=== PATIENT | female | born 1950 | race Caucasian/White ===

== ENCOUNTER 2017-01-05 18:47 | Inpatient (IN) | payer MEDICARE, OTHER ==
[~2017-01-05] VITALS: Ht 170.2 cm; Wt 90.7 kg
[2017-01-05] MEDS ORDERED: ONDANSETRON PF 4 MG/2 ML VIAL. IV ONE ×2 (19:15→20:30)
[2017-01-05 19:26] LABS: BASO # 0.1 x10^3/uL (0.0-0.2); BASO % 0 % (0-3); EOS % 0 % (0-3); HEMOGLOBIN 14.1 g/dL (12.0-15.5); LYMPH # 0.5 x10^3/uL (1.0-4.8); LYMPH % 4 % (24-48); MEAN CORPUSCULAR HEMOGLOBIN 25 pg (25-35); MEAN CORPUSCULAR HGB CONC 33 g/dL (31-37); MEAN CORPUSCULAR VOLUME 76 fL (79-100); MONO % 7 % (0-9); NEUT % 90 % (31-73); PLATELET COUNT 245 x10^3/uL (140-400); RED BLOOD COUNT 5.65 x10^6/uL (3.50-5.40); RED CELL DISTRIBUTION WIDTH 18.3 % (11.5-14.5); WHITE BLOOD COUNT 15.1 x10^3/uL (4.0-11.0)
[2017-01-05 19:36] LABS: CALCIUM 9.8 mg/dL (8.5-10.1); CREATININE 0.8 mg/dL (0.6-1.0); GFR 71.8; POTASSIUM 3.5 mmol/L (3.5-5.1)
[2017-01-05 19:42] LABS: ALBUMIN 3.4 g/dL (3.4-5.0); ALBUMIN/GLOBULIN RATIO 0.7 (1.0-1.7); TOTAL BILIRUBIN 0.5 mg/dL (0.2-1.0); TOTAL PROTEIN 8.3 g/dL (6.4-8.2)
[2017-01-05 19:47] LABS: ANISOCYTOSIS SLIGHT; PLT ESTIMATE ADEQUATE (ADEQUATE)
[2017-01-05] MEDS ORDERED: IV NORMAL SALINE 1000ML BAG 1,000 ML IV ONE ×2 (20:00→23:30)
[2017-01-05] MEDS ORDERED: CONTRAST GIVEN MC PRN (20:15)
[2017-01-05] MEDS ORDERED: IOHEXOL 300 MG/ML 100ML VIAL. IV ONE (20:15)
--- NOTE | 2017-01-05 21:04 | RAD ---
Indication: Abdominal pain with nausea and vomiting TECHNIQUE: CT abdomen and pelvis with 75 mL of Omnipaque 300 with multiplanar reformats. COMPARISON: None FINDINGS: Heart is normal in size. No pericardial or pleural effusion. Clear lung bases. Moderate amount of pneumobilia noted. Note made of biliary stent with its distal tip in the right hepatic duct and proximal tibia in the CBD. Dilated segment 7/6 intrahepatic biliary ducts upstream to the stent. There is a suggestion of ill-defined soft tissue lesion in the segment 7/6 with atrophy of the segments measuring approximately 4.9 x 4.3 cm. Spleen within normal limits. Gallbladder not seen. Pancreas within normal limits. Adrenal glands show no nodularity. No nephrolithiasis or hydronephrosis. Multifocal cortical scarring seen in the left kidney. No enlarged retroperitoneal or pelvic adenopathy. No bowel obstruction. Sigmoid diverticulosis. There is a small bowel and mesentery containing hernia in the right parasagittal abdominal wall with neck measuring approximately 3.7 cm causing proximal small bowel dilation with air-fluid levels. Anastomotic sutures are seen in the right hemiabdomen. There is a 2.3 x 1.6 cm pocket of air in the central mesentery (series 2 image 59) with surrounding bowel loops. No fluid is seen in this cavity. Uterus is anteverted. Bladder within normal limits. No solid adnexal lesions. Scattered atherosclerotic disease of the abdominal aorta. No suspicious bony lesion. Multilevel degenerative changes in the spine. Trace amount of air is seen adjacent to the bowel wall in right hemiabdomen containing in the mesentery. IMPRESSION: 1. Right parasagittal hernia containing loops of small bowel and mesentery causing proximal bowel obstruction. 2. Post surgical changes in the right hemiabdomen with trace amount of contained mesenteric air along the bowel wall. While the scattered areas of air may be postsurgical, bowel perforation not ruled out. Correlate with timing of surgery. 3. Small pocket of air in the central mesentery without significant fluid may represent a contained perforation or patulous loop of bowel. 4. Sigmoid diverticulosis without diverticulitis. 5. Moderate diffuse pneumobilia with biliary duct stent. 6. Dilated intrahepatic ducts in the segment 7 and 6 of the liver with atrophy of the segments. Correlate if patient has history of cholangiocarcinoma or biliary duct stricture for which stent was placed. Electronically signed by: Atul Salazar DO (01/05/2017 9:01 PM) [facility]
[2017-01-05] MEDS ORDERED: PIPERACILLIN/TAZOBACTAM 4.5 GM in IV DEXTROSE 5% 100 ML IV ONE (23:30)
[2017-01-05] MEDS ORDERED: VANCOMYCIN 1GM IVPB FOR OMNI 250 ML IV ONE (23:30)
--- NOTE | 2017-01-05 23:49 | PHYS DOC ---
Past Medical History Past Medical History: Diverticulitis, Other Additional Past Medical Histor: OSTEOPOROSIS Past Surgical History: Cholecystectomy, Other Additional Past Surgical Histo: D&C,BILAT KNEES Alcohol Use: None Drug Use: None Adult General Chief Complaint Chief Complaint: ABDOMINAL PAIN HPI HPI 66-year-old female with a history of history of cholecystectomy complicated by the need for common bile duct reconstruction with a section of small bowel, now presents the emergency department complaining of nausea vomiting and abdominal pain for 2 days. Patient states she's had some intermittent abdominal pain which is been worsening. She has nausea and vomiting which is worsening today. Denies fevers chills sweats or shaking chills. No black or bloody stool. Patient 's surgeon was Dr. Echevarria at and she is not currently under his care. Review of Systems Review of Systems Constitutional: Denies fever or chills [] Eyes: Denies change in visual acuity, redness, or eye pain [] HENT: Denies nasal congestion or sore throat [] Respiratory: Denies cough or shortness of breath [] Cardiovascular: No additional information not addressed in HPI [] GI: Per history of present illness : Denies dysuria or hematuria [] Musculoskeletal: Denies back pain or joint pain [] Integument: Denies rash or skin lesions [] Neurologic: Denies headache, focal weakness or sensory changes [] Endocrine: Denies polyuria or polydipsia [] All other systems were reviewed and found to be within normal limits, except as documented in this note. Current Medications Current Medications Current Medications Medications (Trade) Dose Ordered Sig/Adam Start Time Stop Time Status Last Admin Dose Admin Dexamethasone Sodium Phosphate (Decadron) 20 mg STK-MED ONCE 01/06/17 00:30 01/06/17 00:31 DC Fentanyl Citrate (Fentanyl 2ml Vial) 100 mcg STK-MED ONCE 01/06/17 00:29 01/06/17 00:30 DC Glycopyrrolate (Robinul) 1 mg STK-MED ONCE 01/06/17 00:29 01/06/17 00:31 DC Info (Do NOT chart on this entry -- for MONITORING) 1 each PRN DAILY PRN 01/05/17 20:15 01/07/17 20:14 Iohexol (Omnipaque 300 Mg/ml) 75 ml 1X ONCE 01/05/17 20:15 01/05/17 20:16 DC 01/05/17 20:10 75 ML Lidocaine HCl (Lidocaine Pf 2% Vial) 5 ml STK-MED ONCE 01/06/17 00:30 01/06/17 00:31 DC Midazolam HCl (Versed) 2 mg STK-MED ONCE 01/06/17 00:29 01/06/17 00:30 DC Morphine Sulfate 2 mg PRN Q2HR PRN 01/05/17 23:45 01/06/17 23:44 Neostigmine Methylsulfate (Bloxiverz) 10 mg STK-MED ONCE 01/06/17 00:29 01/06/17 00:30 DC Ondansetron HCl (Zofran) 4 mg STK-MED ONCE 01/06/17 00:30 01/06/17 00:31 DC Piperacillin Sod/ Tazobactam Sod (Zosyn) 4.5 gm 1X ONCE 01/06/17 00:00 01/06/17 00:01 DC 01/06/17 00:17 4.5 GM Piperacillin Sod/ Tazobactam Sod 3.375 gm/Dextrose 50 ml @ 100 mls/hr 1X ONCE 01/06/17 01:30 01/06/17 01:59 UNV Piperacillin Sod/ Tazobactam Sod 4.5 gm/Dextrose 100 ml @ 200 mls/hr 1X ONCE 01/05/17 23:30 01/05/17 23:59 UNV Propofol 0 ml @ As Directed STK-MED ONCE 01/06/17 00:30 01/06/17 00:31 DC Rocuronium [place] (Zemuron) 50 mg STK-MED ONCE 01/06/17 00:30 01/06/17 00:31 DC Sevoflurane (Ultane) 90 ml STK-MED ONCE 01/06/17 00:29 01/06/17 00:30 DC Sodium Chloride 1,000 ml @ 125 mls/hr Q8H 01/05/17 23:31 01/06/17 23:30 Succinylcholine Chloride (Anectine) 200 mg STK-MED ONCE 01/06/17 00:32 01/06/17 00:33 DC Vancomycin HCl (Vanco Per Pharmacy) 1 each PRN DAILY PRN 01/05/17 23:30 Vancomycin HCl 2 gm/Dextrose 500 ml @ 250 mls/hr 1X ONCE 01/06/17 00:30 01/06/17 02:29 01/06/17 00:20 250 MLS/HR Allergies Allergies Allergies Coded Allergies Type Severity Reaction Last Updated Verified No Known Drug Allergies 01/05/17 No Physical Exam Physical Exam Constitutional: Well developed, well nourished, no acute distress, non-toxic appearance. [] HENT: Normocephalic, atraumatic, bilateral external ears normal, oropharynx moist, no oral exudates, nose normal. [] Eyes: PERRLA, EOMI, conjunctiva normal, no discharge. [] Neck: Normal range of motion, no tenderness, supple, no stridor. [] Cardiovascular:Heart rate regular rhythm, no murmur [] Lungs & Thorax: Bilateral breath sounds clear to auscultation [] Abdomen: Bowel sounds normal, soft, mild mid abdominal tenderness without guarding or rebound. Well-healed old right parasagittal scar intact with no skin changes. No masses, no pulsatile masses. [] Skin: Warm, dry, no erythema, no rash. [] Back: No tenderness, no CVA tenderness. [] Extremities: No tenderness, no cyanosis, no clubbing, ROM intact, no edema. [] Neurologic: Alert and oriented X 3, normal motor function, normal sensory function, no focal deficits noted. [] Psychologic: Affect normal, judgement normal, mood normal. [] Current Patient Data Vital Signs Vital Signs Date Time Temp Pulse Resp B/P (MAP) Pulse Ox O2 Delivery O2 Flow Rate FiO2 01/05/17 23:51 80 25 117/60 (79) 94 Room Air 01/05/17 18:47 98.5 98.5 Lab Values Laboratory Tests Test 01/05/17 19:15 01/05/17 23:34 01/06/17 00:08 White Blood Count 15.1 x10^3/uL (4.0-11.0) H Red Blood Count 5.65 x10^6/uL (3.50-5.40) H Hemoglobin 14.1 g/dL (12.0-15.5) Hematocrit 43.0 % (36.0-47.0) Mean Corpuscular Volume 76 fL (79-100) L Mean Corpuscular Hemoglobin 25 pg (25-35) Mean Corpuscular Hemoglobin Concent 33 g/dL (31-37) Red Cell Distribution Width 18.3 % (11.5-14.5) H Platelet Count 245 x10^3/uL (140-400) Neutrophils (%) (Auto) 90 % (31-73) H Lymphocytes (%) (Auto) 4 % (24-48) L Monocytes (%) (Auto) 7 % (0-9) Eosinophils (%) (Auto) 0 % (0-3) Basophils (%) (Auto) 0 % (0-3) Neutrophils # (Auto) 13.5 x10^3uL (1.8-7.7) H Lymphocytes # (Auto) 0.5 x10^3/uL (1.0-4.8) L Monocytes # (Auto) 1.0 x10^3/uL (0.0-1.1) Eosinophils # (Auto) 0.0 x10^3/uL (0.0-0.7) Basophils # (Auto) 0.1 x10^3/uL (0.0-0.2) Segmented Neutrophils % 89 % (35-66) H Band Neutrophils % 4 % (0-9) Lymphocytes % 3 % (24-48) L Monocytes % 4 % (0-10) Platelet Estimate Adequate (ADEQUATE) Anisocytosis Slight Sodium Level 136 mmol/L (136-145) Potassium Level 3.5 mmol/L (3.5-5.1) Chloride Level 98 mmol/L (98-107) Carbon Dioxide Level 28 mmol/L (21-32) Anion Gap 10 (6-14) Blood Urea Nitrogen 14 mg/dL (7-20) Creatinine 0.8 mg/dL (0.6-1.0) Estimated GFR (Cockcroft-Gault) 71.8 BUN/Creatinine Ratio 18 (6-20) Glucose Level 118 mg/dL (70-99) H Calcium Level 9.8 mg/dL (8.5-10.1) Total Bilirubin 0.5 mg/dL (0.2-1.0) Aspartate Amino Transferase (AST) 37 U/L (15-37) Alanine Aminotransferase (ALT) 46 U/L (14-59) Alkaline Phosphatase 72 U/L (46-116) Total Protein 8.3 g/dL (6.4-8.2) H Albumin 3.4 g/dL (3.4-5.0) Albumin/Globulin Ratio 0.7 (1.0-1.7) L Lipase 179 U/L (73-393) Urine Collection Type Unknown Urine Color Yellow Urine Clarity Hazy Urine pH 6.5 Urine Specific [place] <=1.005 Urine Protein 30 mg/dL (NEG-TRACE) Urine Glucose (UA) Negative mg/dL (NEG) Urine Ketones (Stick) 80 mg/dL (NEG) Urine Blood Moderate (NEG) Urine Nitrite Positive (NEG) Urine Bilirubin Negative (NEG) Urine Urobilinogen Dipstick 0.2 mg/dL (0.2 mg/dL) Urine Leukocyte Esterase Trace (NEG) Urine RBC 1-2 /HPF (0-2) Urine WBC 1-4 /HPF (0-4) Urine Squamous Epithelial Cells Few /LPF Urine Bacteria Many /HPF (0-FEW) Lactic Acid Level 0.8 mmol/L (0.4-2.0) Laboratory Tests 01/05/17 19:15 Laboratory Tests 01/05/17 19:15 EKG EKG EKG with normal sinus rhythm at [address] and T-wave findings no STEMI interpreted by me[] Radiology/Procedures Radiology/Procedures [] Course & Med Decision Making Course & Med Decision Making Pertinent Labs and Imaging studies reviewed. (See chart for details) Patient with history of common bile duct reconstruction with a right parasagittal vertical abdominal scar now with abdominal pain and CT findings consistent with incarcerated hernia. White blood cell count 15.1. Case discussed with Dr. Huston on-call for patient's primary care doctor. He is aware of history and findings accepts patient for inpatient admission his service with consultation to surgery. Case discussed with Dr. Arriaga surgery asset protection professional. He is aware the history and findings and agrees with stat consultation. Patient will be kept nothing by mouth with IV fluids administered. Dr. Arriaga will see patient and provide surgical treatment as needed. Patient clinically and hemodynamically stable on reevaluation. Given elevated white blood cell count blood cultures will be drawn and antibiotic coverage initiated. [] Dragon Disclaimer Dragon Disclaimer This electronic medical record was generated, in whole or in part, using a voice recognition dictation system. Departure Departure Impression: Primary Impression: Abdominal wall hernia Additional Impressions: Small bowel obstruction Leukocytosis Abdominal pain Disposition: 09 ADMITTED INPATIENT Admitting Physician: Aaron Huston Referrals: ED BEAR MD (PCP) Problem Qualifiers ED LATHAM MD Jan 05, 2017 23:49
[2017-01-05 23:52] LABS: BACTERIA,URINE MANY /HPF (0-FEW); BILIRUBIN,URINE NEGATIVE (NEG); GLUCOSE,URINE NEGATIVE (NEG); NITRITE,URINE POSITIVE (NEG); PH,URINE 6.5; PROTEIN,URINE 30 mg/dL (NEG-TRACE); SQUAMOUS EPITHELIAL CELL,UR FEW /LPF; UROBILINOGEN,URINE 0.2 mg/dL (0.2 mg/dL)
[2017-01-06] MEDS ORDERED: PIPERACILLIN/TAZO IV Push 4.5 GM VIAL. IVP ONE
[2017-01-06] MEDS ORDERED: SEVOFLURANE > 120 MINUTES. IH ONE (00:29)
[2017-01-06] MEDS ORDERED: MIDAZOLAM HCL/PF 2 MG/2 ML VIAL. ONE (00:29)
[2017-01-06] MEDS ORDERED: NEOSTIGMINE 10 MG/10 ML VIAL. ONE (00:29)
[2017-01-06] MEDS ORDERED: fentaNYL PF VIAL 100 MCG/2 ML VIAL ONE (00:29)
[2017-01-06] MEDS ORDERED: GLYCOPYRROLATE 1 MG/5 ML VIAL. ONE (00:29)
[2017-01-06] MEDS ORDERED: VANCOMYCIN 2 GM in IV DEXTROSE 5% 500 ML IV ONE (00:30)
[2017-01-06] MEDS ORDERED: DEXAMETHASONE SOD PHOS 20 MG/5 ML VIAL. ONE (00:30)
[2017-01-06] MEDS ORDERED: PROPOFOL 0 ML IV ONE (00:30)
[2017-01-06] MEDS ORDERED: LIDOCAINE 2% PF Vial for OR 5 ML VIAL. ONE (00:30)
[2017-01-06] MEDS ORDERED: ONDANSETRON PF 4 MG/2 ML VIAL. ONE (00:30)
[2017-01-06] MEDS ORDERED: ROCURONIUM 50 MG/5 ML VIAL. ONE (00:30)
[2017-01-06] MEDS ORDERED: SUCCINYLCHOLINE 200 MG/10 ML VIAL. ONE (00:32)
--- NOTE | 2017-01-06 01:15 | PDOC2 ---
CONSULT Date of Consult Date of Consult DATE: 01/06/17 TIME: 01:08 History of Present Illness Reason for Visit: The patient is a 66 year old female who reported to the ER with a 4 day history of abdominal pain with vomiting. The pain is located in the mid abdomen and is somewhat improved currently. She did have a stool earlier today and is not sure if she's passing gas. She has a complex prior surgical history including an extensive bile duct reconstruction at following a cholecystectomy. Past Surgical History Past Surgical History open carmen, yoon en y bile duct reconstruction Social History No Current Problem List Problem List Problems Medical Problems: (1) Abdominal pain Status: Acute (2) Abdominal wall hernia Status: Acute (3) Leukocytosis Status: Acute (4) Small bowel obstruction Status: Acute Current Medications Current Medications Current Medications Ondansetron HCl (Zofran) 4 mg 1X ONCE IV Last administered on 01/05/17 19:29 ; Start 01/05/17 at 19:15; Stop 01/05/17 at 19:17; Status DC Sodium Chloride 1,000 ml @ 1,000 mls/hr 1X ONCE IV Last administered on 01/05 20:22; Start 01/05/17 at 20:00; Stop 01/05/17 at 20:59; Status DC Iohexol (Omnipaque 300 Mg/ml) 75 ml 1X ONCE IV Last administered on 20:10; Start 01/05/17 at 20:15; Stop 01/05/17 at 20:16; Status DC Info (Do NOT chart on this entry -- for MONITORING) 1 each PRN DAILY PRN MC SEE COMMENTS; Start 01/05/17 at 20:15; Stop 01/07/17 at 20:14 Ondansetron HCl (Zofran) 4 mg 1X ONCE IV Last administered on 01/05/17 20:22 ; Start 01/05/17 at 20:30; Stop 01/05/17 at 20:31; Status DC Sodium Chloride 1,000 ml @ 125 mls/hr 1X ONCE IV Last administered on 23:30; Start 01/05/17 at 23:30; Stop 01/06/17 at 07:29 Piperacillin Sod/ Tazobactam Sod 4.5 gm/Dextrose 100 ml @ 200 mls/hr 1X ONCE IV ; Start 01/05/17 at 23:30; Stop 01/05/17 at 23:59; Status UNV Vancomycin HCl 250 ml @ 250 mls/hr 1X ONCE IV ; Start 01/05/17 at 23:30; Stop 01/06/17 at 00:29; Status UNV Piperacillin Sod/ Tazobactam Sod (Zosyn) 4.5 gm 1X ONCE IVP Last administered on 01/06/17t 00:17; Start 01/06/17 at 00:00; Stop 01/06/17 at 00:01; Status DC Vancomycin HCl (Vanco Per Pharmacy) 1 each PRN DAILY PRN MC SEE COMMENTS; Start 01/05/17 at 23:30 Vancomycin HCl 2 gm/Dextrose 500 ml @ 250 mls/hr 1X ONCE IV Last administered on 01/06/17t 00:20; Start 01/06/17 at 00:30; Stop 01/06/17 at 02 :29 Ondansetron HCl (Zofran) 4 mg PRN Q8HRS PRN IV NAUSEA/VOMITING; Start at 23:45; Stop 01/06/17 at 23:44 Morphine Sulfate 2 mg PRN Q2HR PRN IV SEVERE PAIN; Start 01/05/17 at 23:45; Stop 01/06/17 at 23:44 Sodium Chloride 1,000 ml @ 125 mls/hr Q8H IV ; Start 01/05/17 at 23:31; Stop 01/06/17 at 23:30 Sevoflurane (Ultane) 90 ml STK-MED ONCE IH ; Start 01/06/17 at 00:29; Stop at 00:30; Status DC Neostigmine Methylsulfate (Bloxiverz) 10 mg STK-MED ONCE .ROUTE ; Start at 00:29; Stop 01/06/17 at 00:30; Status DC Midazolam HCl (Versed) 2 mg STK-MED ONCE .ROUTE ; Start 01/06/17 at 00:29; Stop 01/06/17 at 00:30; Status DC Fentanyl Citrate (Fentanyl 2ml Vial) 100 mcg STK-MED ONCE .ROUTE ; Start at 00:29; Stop 01/06/17 at 00:30; Status DC Glycopyrrolate (Robinul) 1 mg STK-MED ONCE .ROUTE ; Start 01/06/17 at 00:29; Stop 01/06/17 at 00:31; Status DC Rocuronium [place] (Zemuron) 50 mg STK-MED ONCE .ROUTE ; Start 01/06/17 at 00: 30; Stop 01/06/17 at 00:31; Status DC Propofol 20 ml @ As Directed STK-MED ONCE IV ; Start 01/06/17 at 00:30; Stop 01/06/17 at 00:31; Status DC Lidocaine HCl (Lidocaine Pf 2% Vial) 5 ml STK-MED ONCE .ROUTE ; Start 01/06/17 at 00:30; Stop 01/06/17 at 00:31; Status DC Dexamethasone Sodium Phosphate (Decadron) 20 mg STK-MED ONCE .ROUTE ; Start at 00:30; Stop 01/06/17 at 00:31; Status DC Ondansetron HCl (Zofran) 4 mg STK-MED ONCE .ROUTE ; Start 01/06/17 at 00:30; Stop 01/06/17 at 00:31; Status DC Succinylcholine Chloride (Anectine) 200 mg STK-MED ONCE .ROUTE ; Start at 00:32; Stop 01/06/17 at 00:33; Status DC Allergies Allergies: Coded Allergies: No Known Drug Allergies (Unverified , 01/05/17) ROS General: No: Chills, Night Sweats, Fatigue, Malaise, Appetite, Other PSYCHOLOGICAL ROS: No: Anxiety, Behavioral Disorder, Concentration difficultie , Decreased libido, Depression, Disorientation, Hallucinations, Hostility, Irritablity, Memory difficulties, Mood Swings, Obsessive thoughts, Physical abuse, Sexual abuse, Sleep disturbances, Suicidal ideation, Other Eyes: No Blurry vision, No Decreased vision, No Double vision, No Dry eyes, No Excessive tearing, No Eye Pain, No Itchy Eyes, No Loss of vision, No Photophobia , No Scotomata, No Uses contacts, No Uses glasses, No Other Hematological and Lymphatic: No: Bleeding Problems, Blood Clots, Blood Transfusions, Brusing, Night Sweats, Pallor, Swollen Lymph Nodes, Other ENDOCRINE: No: Breast Changes, Galactorrhea, Hair Pattern Changes, Hot Flashes , Malaise/lethargy, Mood Swings, Palpitations, Polydipsia/polyuria, Skin Changes , Temperature Intolerance, Unexpected Weight Changes, Other Cardiovascular: No Chest Pain, No Palpitations, No Orthopnea, No Paroxysmal Noc. Dyspnea, No Edema, No Lt Headedness, No Other Gastrointestinal: Yes Vomiting, Yes Abdominal Pain Genitourinary: No Dysuria, No Frequency, No Incontinence, No Hematuria, No Retention, No Discharge, No Urgency, No Pain, No Flank Pain, No Other, No , No , No , No , No , No , No Musculoskeletal: No Gait Disturbance, No Joint Pain, No Joint Stiffness, No Joint Swelling, No Muscle Pain, No Muscular Weakness, No Pain In:, No Swelling In:, No Other Neurological: No Behavorial Changes, No Bowel/Bladder ControlChng, No Confusion , No Dizziness, No Gait Disturbance, No Headaches, No Impaired Coord/balance, No Memory Loss, No Numbness/Tingling, No Seizures, No Speech Problems, No Tremors, No Visual Changes, No Weakness, No Other Skin: No Dry Skin, No Eczema, No Hair Changes, No Lumps, No Mole Changes, No Mottling, No Nail Changes, No Pruritus, No Rash, No Skin Lesion Changes, No Other, No Acne Physical Exam General: Alert, Oriented X3, Cooperative HEENT: Atraumatic Lungs: Clear to auscultation Heart: Regular rate Abdomen: Soft (mildly tender R abdomen, R paramedian scar present, hernia currently appears reduced on clinical exam, no palpable incarceration) Extremities: No clubbing, No cyanosis Skin: No rashes Neuro: Normal speech Psych/Mental Status: Mental status NL Vitals VITALS Vital Signs Date Time Temp Pulse Resp B/P (MAP) Pulse Ox O2 Delivery O2 Flow Rate FiO2 01/05/17 23:51 80 25 117/60 (79) 94 Room Air 01/05/17 18:47 98.5 98.5 Labs Labs Laboratory Tests Test 01/05/17 19:15 01/05/17 23:34 01/06/17 00:08 White Blood Count 15.1 x10^3/uL (4.0-11.0) Red Blood Count 5.65 x10^6/uL (3.50-5.40) Hemoglobin 14.1 g/dL (12.0-15.5) Hematocrit 43.0 % (36.0-47.0) Mean Corpuscular Volume 76 fL (79-100) Mean Corpuscular Hemoglobin 25 pg (25-35) Mean Corpuscular Hemoglobin Concent 33 g/dL (31-37) Red Cell Distribution Width 18.3 % (11.5-14.5) Platelet Count 245 x10^3/uL (140-400) Neutrophils (%) (Auto) 90 % (31-73) Lymphocytes (%) (Auto) 4 % (24-48) Monocytes (%) (Auto) 7 % (0-9) Eosinophils (%) (Auto) 0 % (0-3) Basophils (%) (Auto) 0 % (0-3) Neutrophils # (Auto) 13.5 x10^3uL (1.8-7.7) Lymphocytes # (Auto) 0.5 x10^3/uL (1.0-4.8) Monocytes # (Auto) 1.0 x10^3/uL (0.0-1.1) Eosinophils # (Auto) 0.0 x10^3/uL (0.0-0.7) Basophils # (Auto) 0.1 x10^3/uL (0.0-0.2) Segmented Neutrophils % 89 % (35-66) Band Neutrophils % 4 % (0-9) Lymphocytes % 3 % (24-48) Monocytes % 4 % (0-10) Platelet Estimate Adequate (ADEQUATE) Anisocytosis Slight Sodium Level 136 mmol/L (136-145) Potassium Level 3.5 mmol/L (3.5-5.1) Chloride Level 98 mmol/L (98-107) Carbon Dioxide Level 28 mmol/L (21-32) Anion Gap 10 (6-14) Blood Urea Nitrogen 14 mg/dL (7-20) Creatinine 0.8 mg/dL (0.6-1.0) Estimated GFR (Cockcroft-Gault) 71.8 BUN/Creatinine Ratio 18 (6-20) Glucose Level 118 mg/dL (70-99) Calcium Level 9.8 mg/dL (8.5-10.1) Total Bilirubin 0.5 mg/dL (0.2-1.0) Aspartate Amino Transf (AST/SGOT) 37 U/L (15-37) Alanine Aminotransferase (ALT/SGPT) 46 U/L (14-59) Alkaline Phosphatase 72 U/L (46-116) Total Protein 8.3 g/dL (6.4-8.2) Albumin 3.4 g/dL (3.4-5.0) Albumin/Globulin Ratio 0.7 (1.0-1.7) Lipase 179 U/L (73-393) Urine Collection Type Unknown Urine Color Yellow Urine Clarity Hazy Urine pH 6.5 Urine Specific [place] <=1.005 Urine Protein 30 mg/dL (NEG-TRACE) Urine Glucose (UA) Negative mg/dL (NEG) Urine Ketones (Stick) 80 mg/dL (NEG) Urine Blood Moderate (NEG) Urine Nitrite Positive (NEG) Urine Bilirubin Negative (NEG) Urine Urobilinogen Dipstick 0.2 mg/dL (0.2 mg/dL) Urine Leukocyte Esterase Trace (NEG) Urine RBC 1-2 /HPF (0-2) Urine WBC 1-4 /HPF (0-4) Urine Squamous Epithelial Cells Few /LPF Urine Bacteria Many /HPF (0-FEW) Lactic Acid Level 0.8 mmol/L (0.4-2.0) Laboratory Tests Test 01/05/17 19:15 01/05/17 23:34 01/06/17 00:08 White Blood Count 15.1 x10^3/uL (4.0-11.0) Red Blood Count 5.65 x10^6/uL (3.50-5.40) Hemoglobin 14.1 g/dL (12.0-15.5) Hematocrit 43.0 % (36.0-47.0) Mean Corpuscular Volume 76 fL (79-100) Mean Corpuscular Hemoglobin 25 pg (25-35) Mean Corpuscular Hemoglobin Concent 33 g/dL (31-37) Red Cell Distribution Width 18.3 % (11.5-14.5) Platelet Count 245 x10^3/uL (140-400) Neutrophils (%) (Auto) 90 % (31-73) Lymphocytes (%) (Auto) 4 % (24-48) Monocytes (%) (Auto) 7 % (0-9) Eosinophils (%) (Auto) 0 % (0-3) Basophils (%) (Auto) 0 % (0-3) Neutrophils # (Auto) 13.5 x10^3uL (1.8-7.7) Lymphocytes # (Auto) 0.5 x10^3/uL (1.0-4.8) Monocytes # (Auto) 1.0 x10^3/uL (0.0-1.1) Eosinophils # (Auto) 0.0 x10^3/uL (0.0-0.7) Basophils # (Auto) 0.1 x10^3/uL (0.0-0.2) Segmented Neutrophils % 89 % (35-66) Band Neutrophils % 4 % (0-9) Lymphocytes % 3 % (24-48) Monocytes % 4 % (0-10) Platelet Estimate Adequate (ADEQUATE) Anisocytosis Slight Sodium Level 136 mmol/L (136-145) Potassium Level 3.5 mmol/L (3.5-5.1) Chloride Level 98 mmol/L (98-107) Carbon Dioxide Level 28 mmol/L (21-32) Anion Gap 10 (6-14) Blood Urea Nitrogen 14 mg/dL (7-20) Creatinine 0.8 mg/dL (0.6-1.0) Estimated GFR (Cockcroft-Gault) 71.8 BUN/Creatinine Ratio 18 (6-20) Glucose Level 118 mg/dL (70-99) Calcium Level 9.8 mg/dL (8.5-10.1) Total Bilirubin 0.5 mg/dL (0.2-1.0) Aspartate Amino Transf (AST/SGOT) 37 U/L (15-37) Alanine Aminotransferase (ALT/SGPT) 46 U/L (14-59) Alkaline Phosphatase 72 U/L (46-116) Total Protein 8.3 g/dL (6.4-8.2) Albumin 3.4 g/dL (3.4-5.0) Albumin/Globulin Ratio 0.7 (1.0-1.7) Lipase 179 U/L (73-393) Urine Collection Type Unknown Urine Color Yellow Urine Clarity Hazy Urine pH 6.5 Urine Specific [place] <=1.005 Urine Protein 30 mg/dL (NEG-TRACE) Urine Glucose (UA) Negative mg/dL (NEG) Urine Ketones (Stick) 80 mg/dL (NEG) Urine Blood Moderate (NEG) Urine Nitrite Positive (NEG) Urine Bilirubin Negative (NEG) Urine Urobilinogen Dipstick 0.2 mg/dL (0.2 mg/dL) Urine Leukocyte Esterase Trace (NEG) Urine RBC 1-2 /HPF (0-2) Urine WBC 1-4 /HPF (0-4) Urine Squamous Epithelial Cells Few /LPF Urine Bacteria Many /HPF (0-FEW) Lactic Acid Level 0.8 mmol/L (0.4-2.0) Images Images CT abdomen: IMPRESSION: 1. Right parasagittal hernia containing loops of small bowel and mesentery causing proximal bowel obstruction. 2. Post surgical changes in the right hemiabdomen with trace amount of contained mesenteric air along the bowel wall. While the scattered areas of air may be postsurgical, bowel perforation not ruled out. Correlate with timing of surgery. 3. Small pocket of air in the central mesentery without significant fluid may represent a contained perforation or patulous loop of bowel. 4. Sigmoid diverticulosis without diverticulitis. 5. Moderate diffuse pneumobilia with biliary duct stent. 6. Dilated intrahepatic ducts in the segment 7 and 6 of the liver with atrophy of the segments. Correlate if patient has history of cholangiocarcinoma or biliary duct stricture for which stent was placed. Assessment/Plan Assessment/Plan 66 year old female with abdominal pain, vomiting; her CT findings were noted which include a R paramedian ventral hernia; she has marked postoperative changes as well including some likely chronically dilated bowel and pneumobilia ; her exam shows a soft abdomen without guarding or peritoneal signs, scar tissue present along R paramedian scar, but no palpable hernia incarceration at this time; at this time I would recommend admission, hydration, pain control, serial exams/labs; if further abdominal surgery appears necessary, would consider transfer to due to complexity of her prior surgical history and altered anatomy. I discussed this with the patient; she currently feels somewhat improved and is agreeable for the plan. ELIZA ZAVALA MD Jan 06, 2017 01:15
[2017-01-06] MEDS ORDERED: PIPERACILLIN/TAZOBACTAM 3.375 GM in IV DEXTROSE 5% 50 ML IV ONE (01:30)
[2017-01-06] MEDS: VANCOMYCIN PER PHARMACY MC PRN (01:53)
[2017-01-06] MEDS: MORPHINE SULFATE 4 MG/ML DISP.SYRIN. IV PRN ×2 (02:05→22:12)
[2017-01-06] MEDS: ONDANSETRON PF 4 MG/2 ML VIAL. IV PRN ×2 (02:22→22:12)
[2017-01-06 04:00] VITALS: BP 130/69
[2017-01-06] MEDS ORDERED: NAPR-677 PO (05:05)
[2017-01-06] MEDS ORDERED: calcium (05:05)
[2017-01-06] MEDS ORDERED: vitamin (05:05)
[2017-01-06] MEDS ORDERED: [UNRECOGNIZED DRUG - REMARK] (05:05)
[2017-01-06] MEDS ORDERED: LUTE1CAP5 PO (05:05)
[2017-01-06 07:00] VITALS: BP 107/65
--- NOTE | 2017-01-06 07:21 | EKG ---
[facility] [address] [place] [address] Test Date: 2017-01-05 Test Time: 19:36:08 Pat Name: AMITA ARMAS Department: Room: 552 1 Gender: F Distribution Operation Supervisor: : 1950 Requested By: Maryjo RODRÍGUEZ Order Number: [id number] Reading MD: Joel Dietrich MD Measurements Intervals [place] Rate: 80 P: 31 OR: 150 QRS: 22 QRSD: 86 T: 17 QT: 378 QTc: 440 Interpretive Statements SINUS RHYTHM Electronically Signed On 01-06-2017 15:27:37 STEAM FINISHER by Joel Dietrich MD
[2017-01-06] MEDS: IV NORMAL SALINE 1000ML BAG 1,000 ML IV SCH ×3 (07:31→11:44)
--- NOTE | 2017-01-06 08:20 | PDOC ---
JERO REZA COORDINATE MEASURING MACHINE TECHNICIAN 01/06/17 0820: SURGICAL PROGRESS NOTE Subjective still with some pain RUQ, scar area, however improved from admission did have loose stool and flatus no n/v Vital Signs Vital Signs Date Time Temp Pulse Resp B/P (MAP) Pulse Ox O2 Delivery O2 Flow Rate FiO2 01/06/17 07:00 97.9 78 18 107/65 (79) 94 Room Air 97.9 I&O Intake and Output 01/06/17 07:00 Intake Total 1000 ml Balance 1000 ml Intake Oral 0 ml IV Total 1000 ml General: Alert, Oriented X3, Cooperative, No acute distress Abdomen: Soft, Other (ND, tenderness over right abdominal scar, however no palpible hernia) Labs Laboratory Tests Test 01/05/17 19:15 01/05/17 23:34 01/06/17 00:08 White Blood Count 15.1 x10^3/uL (4.0-11.0) Red Blood Count 5.65 x10^6/uL (3.50-5.40) Hemoglobin 14.1 g/dL (12.0-15.5) Hematocrit 43.0 % (36.0-47.0) Mean Corpuscular Volume 76 fL (79-100) Mean Corpuscular Hemoglobin 25 pg (25-35) Mean Corpuscular Hemoglobin Concent 33 g/dL (31-37) Red Cell Distribution Width 18.3 % (11.5-14.5) Platelet Count 245 x10^3/uL (140-400) Neutrophils (%) (Auto) 90 % (31-73) Lymphocytes (%) (Auto) 4 % (24-48) Monocytes (%) (Auto) 7 % (0-9) Eosinophils (%) (Auto) 0 % (0-3) Basophils (%) (Auto) 0 % (0-3) Neutrophils # (Auto) 13.5 x10^3uL (1.8-7.7) Lymphocytes # (Auto) 0.5 x10^3/uL (1.0-4.8) Monocytes # (Auto) 1.0 x10^3/uL (0.0-1.1) Eosinophils # (Auto) 0.0 x10^3/uL (0.0-0.7) Basophils # (Auto) 0.1 x10^3/uL (0.0-0.2) Segmented Neutrophils % 89 % (35-66) Band Neutrophils % 4 % (0-9) Lymphocytes % 3 % (24-48) Monocytes % 4 % (0-10) Platelet Estimate Adequate (ADEQUATE) Anisocytosis Slight Sodium Level 136 mmol/L (136-145) Potassium Level 3.5 mmol/L (3.5-5.1) Chloride Level 98 mmol/L (98-107) Carbon Dioxide Level 28 mmol/L (21-32) Anion Gap 10 (6-14) Blood Urea Nitrogen 14 mg/dL (7-20) Creatinine 0.8 mg/dL (0.6-1.0) Estimated GFR (Cockcroft-Gault) 71.8 BUN/Creatinine Ratio 18 (6-20) Glucose Level 118 mg/dL (70-99) Calcium Level 9.8 mg/dL (8.5-10.1) Total Bilirubin 0.5 mg/dL (0.2-1.0) Aspartate Amino Transf (AST/SGOT) 37 U/L (15-37) Alanine Aminotransferase (ALT/SGPT) 46 U/L (14-59) Alkaline Phosphatase 72 U/L (46-116) Total Protein 8.3 g/dL (6.4-8.2) Albumin 3.4 g/dL (3.4-5.0) Albumin/Globulin Ratio 0.7 (1.0-1.7) Lipase 179 U/L (73-393) Urine Collection Type Unknown Urine Color Yellow Urine Clarity Hazy Urine pH 6.5 Urine Specific [place] <=1.005 Urine Protein 30 mg/dL (NEG-TRACE) Urine Glucose (UA) Negative mg/dL (NEG) Urine Ketones (Stick) 80 mg/dL (NEG) Urine Blood Moderate (NEG) Urine Nitrite Positive (NEG) Urine Bilirubin Negative (NEG) Urine Urobilinogen Dipstick 0.2 mg/dL (0.2 mg/dL) Urine Leukocyte Esterase Trace (NEG) Urine RBC 1-2 /HPF (0-2) Urine WBC 1-4 /HPF (0-4) Urine Squamous Epithelial Cells Few /LPF Urine Bacteria Many /HPF (0-FEW) Lactic Acid Level 0.8 mmol/L (0.4-2.0) Laboratory Tests Test 01/05/17 19:15 01/05/17 23:34 01/06/17 00:08 White Blood Count 15.1 x10^3/uL (4.0-11.0) Red Blood Count 5.65 x10^6/uL (3.50-5.40) Hemoglobin 14.1 g/dL (12.0-15.5) Hematocrit 43.0 % (36.0-47.0) Mean Corpuscular Volume 76 fL (79-100) Mean Corpuscular Hemoglobin 25 pg (25-35) Mean Corpuscular Hemoglobin Concent 33 g/dL (31-37) Red Cell Distribution Width 18.3 % (11.5-14.5) Platelet Count 245 x10^3/uL (140-400) Neutrophils (%) (Auto) 90 % (31-73) Lymphocytes (%) (Auto) 4 % (24-48) Monocytes (%) (Auto) 7 % (0-9) Eosinophils (%) (Auto) 0 % (0-3) Basophils (%) (Auto) 0 % (0-3) Neutrophils # (Auto) 13.5 x10^3uL (1.8-7.7) Lymphocytes # (Auto) 0.5 x10^3/uL (1.0-4.8) Monocytes # (Auto) 1.0 x10^3/uL (0.0-1.1) Eosinophils # (Auto) 0.0 x10^3/uL (0.0-0.7) Basophils # (Auto) 0.1 x10^3/uL (0.0-0.2) Segmented Neutrophils % 89 % (35-66) Band Neutrophils % 4 % (0-9) Lymphocytes % 3 % (24-48) Monocytes % 4 % (0-10) Platelet Estimate Adequate (ADEQUATE) Anisocytosis Slight Sodium Level 136 mmol/L (136-145) Potassium Level 3.5 mmol/L (3.5-5.1) Chloride Level 98 mmol/L (98-107) Carbon Dioxide Level 28 mmol/L (21-32) Anion Gap 10 (6-14) Blood Urea Nitrogen 14 mg/dL (7-20) Creatinine 0.8 mg/dL (0.6-1.0) Estimated GFR (Cockcroft-Gault) 71.8 BUN/Creatinine Ratio 18 (6-20) Glucose Level 118 mg/dL (70-99) Calcium Level 9.8 mg/dL (8.5-10.1) Total Bilirubin 0.5 mg/dL (0.2-1.0) Aspartate Amino Transf (AST/SGOT) 37 U/L (15-37) Alanine Aminotransferase (ALT/SGPT) 46 U/L (14-59) Alkaline Phosphatase 72 U/L (46-116) Total Protein 8.3 g/dL (6.4-8.2) Albumin 3.4 g/dL (3.4-5.0) Albumin/Globulin Ratio 0.7 (1.0-1.7) Lipase 179 U/L (73-393) Urine Collection Type Unknown Urine Color Yellow Urine Clarity Hazy Urine pH 6.5 Urine Specific [place] <=1.005 Urine Protein 30 mg/dL (NEG-TRACE) Urine Glucose (UA) Negative mg/dL (NEG) Urine Ketones (Stick) 80 mg/dL (NEG) Urine Blood Moderate (NEG) Urine Nitrite Positive (NEG) Urine Bilirubin Negative (NEG) Urine Urobilinogen Dipstick 0.2 mg/dL (0.2 mg/dL) Urine Leukocyte Esterase Trace (NEG) Urine RBC 1-2 /HPF (0-2) Urine WBC 1-4 /HPF (0-4) Urine Squamous Epithelial Cells Few /LPF Urine Bacteria Many /HPF (0-FEW) Lactic Acid Level 0.8 mmol/L (0.4-2.0) Problem List Problems Medical Problems: (1) Abdominal pain Status: Acute (2) Abdominal wall hernia Status: Acute (3) Leukocytosis Status: Acute (4) Small bowel obstruction Status: Acute Assessment/Plan abdominal pain, vomiting; her CT findings were noted which include a R paramedian ventral hernia; she has marked postoperative changes as well including some likely chronically dilated bowel and pneumobilia benign exam--except some mild pain, no incarcerated hernia on exam labs are pending this AM d/w Dr Arriaga, rec further evaluation at due to complexity of surgical history --will contact PCP Problems: ELIZA ARRIAGA MD 01/06/17 1155: SURGICAL PROGRESS NOTE Assessment/Plan Reviewed, agree with above; believe [facility] evaluation would be beneficial given prior surgical history Problems: JERO REZA APRN Jan 06, 2017 08:20 ELIZA ARRIAGA MD Jan 06, 2017 11:55
--- NOTE | 2017-01-06 09:25 | PDOC ---
Provider Note Provider Note H&P dictated, admitted with SBO but feels better this am after passing stool while urinating, has a complicated GI surgical history from 2008 and may need transfer to but stable so far, will check [facility]. Discussed with surgery VEHICLE OPERATOR Maryjo Diop MD Jan 06, 2017 09:25
[2017-01-06 10:14] LABS: BASO # 0.1 x10^3/uL (0.0-0.2); BASO % 1 % (0-3); EOS % 1 % (0-3); HEMATOCRIT 38.7 % (36.0-47.0); HEMOGLOBIN 12.6 g/dL (12.0-15.5); LYMPH # 0.8 x10^3/uL (1.0-4.8); LYMPH % 10 % (24-48); MEAN CORPUSCULAR HEMOGLOBIN 25 pg (25-35); MEAN CORPUSCULAR HGB CONC 33 g/dL (31-37); MEAN CORPUSCULAR VOLUME 77 fL (79-100); MONO % 9 % (0-9); NEUT % 80 % (31-73); PLATELET COUNT 195 x10^3/uL (140-400); RED BLOOD COUNT 5.03 x10^6/uL (3.50-5.40); RED CELL DISTRIBUTION WIDTH 18.4 % (11.5-14.5); WHITE BLOOD COUNT 8.2 x10^3/uL (4.0-11.0)
[2017-01-06] MEDS: cefTRIAXone IV Push 1 GM VIAL. IVP SCH (10:30)
--- NOTE | 2017-01-06 10:59 | HP ---
ADMIT DATE: 01/05/2017 ADMISSION DIAGNOSIS: Small-bowel obstruction. HISTORY OF PRESENT ILLNESS: This is a 66-year-old white female who initially had cholecystectomy in 2008. It turned into a complicated procedure, required some bile duct reconstruction with bowel. She has done well since then, but 4 days previously, she developed abdominal pain and vomiting. The pain was mid abdominal. She was seen in the Emergency Room, was afebrile with a normal heart rate, normal blood pressure, but had a white count of 15.[address] imaging showing a right parasagittal hernia containing loops of small bowel mesentery causing a proximal bowel obstruction. She is improved though overnight. She is up and about and urinating. Not having any nausea or vomiting and not having any fever. PAST SURGICAL HISTORY: Significant for open cholecystectomy and Virgen-en-Y bile duct reconstruction. She has osteoarthritis. She has a history of tobacco use. FAMILY HISTORY: Hypertension, diabetes and Parkinson's. SOCIAL HISTORY: Former smoker, no alcohol. ALLERGIES: She has no known drug allergies. MEDICATIONS: No chronic home meds. REVIEW OF SYSTEMS: CONSTITUTIONAL: No fever or chills. CARDIAC: No cardiac symptoms. PULMONARY: No pulmonary symptoms. GASTROINTESTINAL: As above. MUSCULOSKELETAL: Some generalized aches and pains, but no specific joint complaints. SKIN: No skin problem. NEUROLOGIC: She did travel [place] in [place], but has not had any infectious disease exposure. She has apparently declined her pneumonia shot in the past. No headaches or neurologic symptoms. PHYSICAL EXAMINATION: VITAL SIGNS: Stable, afebrile. GENERAL: She is in no acute distress. HEART: Regular rate and rhythm. LUNGS: Clear. ABDOMEN: Soft. There is a little bit of right upper quadrant tenderness. No peritoneal signs are identified. Abdomen is not particularly distended. EXTREMITIES: There is no clubbing, cyanosis or peripheral edema. NEUROLOGIC: Her strength is good. SKIN: Turgor is normal. LABORATORY STUDIES: White count of 15.1, hemoglobin of 14, platelets are normal. Chemistries: Glucose of 118, total protein 8.3. Liver enzymes are normal. Lipase is normal. Electrolytes are normal. Renal function is normal. Urinalysis shows 80 ketones, moderate amount of blood, positive nitrite, 1-2 rbc's, 1-4 wbc's, a few squamous epithelial cells and many bacteria. IMAGING STUDIES: CT abdomen and pelvis as discussed above. ASSESSMENT: 1. Small-bowel obstruction that appears to be improving. 2. History of complicated abdominal surgery with cholecystectomy in 2008 and a Virgen-en-Y with bile duct reconstruction after that. 3. Osteoarthritis. PLAN: She is admitted. Surgical consultation has been obtained. She is stable at this point, but should she require surgery, transfer back to would be indicated due to her complicated history. She appears to have a urinary tract infection. We will cover with antibiotics, await her culture, hydrate her and leave her at bowel rest for now. W Shan RODRÍGUEZ MD DR: BRAIN/rosenda JOB#: [id number] / [id number]
[2017-01-06 11:00] VITALS: BP 104/61
[2017-01-06] MEDS: VANCOMYCIN 1.25 GM in IV DEXTROSE 5% 250 ML IV SCH (11:44)
--- NOTE | 2017-01-06 13:56 | RAD ---
Portable abdomen, 01/06/2017: History: Small bowel obstruction There is a biliary stent projected over the right upper quadrant of the abdomen. Gas is present in large and small bowel. The majority of the bowel loops are not currently dilated. In the right midabdomen there is a gas collection with associated sutures which is mildly prominent measuring approximately 4 cm in diameter. There was a larger segment of dilated small bowel in this region on yesterday's CT study, with apparent interval decompression. Correlation with the patient's precise surgical history is suggested. There is no evidence of organomegaly. IMPRESSION: Resolving small bowel obstruction
[2017-01-06 15:00] VITALS: BP 128/66
[2017-01-06 19:00] VITALS: BP 114/67
[2017-01-06 23:00] VITALS: BP 114/69
[2017-01-07] MEDS: VANCOMYCIN 1.25 GM in IV DEXTROSE 5% 250 ML IV SCH ×2 (00:47→13:47)
[2017-01-07 03:00] VITALS: BP 107/65
[2017-01-07 05:32] LABS: BASO % 1 % (0-3); EOS % 4 % (0-3); HEMATOCRIT 37.1 % (36.0-47.0); HEMOGLOBIN 11.9 g/dL (12.0-15.5); LYMPH # 1.5 x10^3/uL (1.0-4.8); LYMPH % 22 % (24-48); MEAN CORPUSCULAR HEMOGLOBIN 25 pg (25-35); MEAN CORPUSCULAR HGB CONC 32 g/dL (31-37); MEAN CORPUSCULAR VOLUME 77 fL (79-100); MONO % 10 % (0-9); NEUT % 64 % (31-73); PLATELET COUNT 190 x10^3/uL (140-400); RED CELL DISTRIBUTION WIDTH 18.3 % (11.5-14.5); WHITE BLOOD COUNT 6.8 x10^3/uL (4.0-11.0)
[2017-01-07 05:50] LABS: CALCIUM 8.1 mg/dL (8.5-10.1); CREATININE 0.7 mg/dL (0.6-1.0); GFR 83.7; POTASSIUM 3.3 mmol/L (3.5-5.1)
[2017-01-07 07:00] VITALS: BP 108/67
--- NOTE | 2017-01-07 07:35 | PDOC ---
PROGRESS NOTES Subjective Subjective no nausea or vomiting, still with right sided pain Objective Objective Vital Signs Date Time Temp Pulse Resp B/P (MAP) Pulse Ox O2 Delivery O2 Flow Rate FiO2 01/07/17 03:00 98.7 72 16 107/65 (79) 92 98.7 01/06/17 22:12 Room Air Intake and Output 01/07/17 07:00 Intake Total 2590 ml Output Total 2 ml Balance 2588 ml Intake Oral 1340 ml IV Total 1250 ml Output Urine Total 2 ml # Voids 5 Physical Exam Physical Exam abdomen soft, hernia reducible without incarceration, mildly tender right side without guarding or peritoneal signs Assessment Assessment Problems Medical Problems: (1) Abdominal pain Status: Acute (2) Abdominal wall hernia Status: Acute (3) Leukocytosis Status: Acute (4) Small bowel obstruction Status: Acute Plan Plan of Care Some clinical improvement, WBC normal, hernia reducible; do not believe hernia is primary problem as it is reducible; the CT scan shows significant postoperative changes from prior complex biliary surgery, recommend [facility] evaluation by specialist; I will sign off Comment Review of Relevant I have reviewed the following items harvinder (where applicable) has been applied. Labs Laboratory Tests Test 01/05/17 19:15 01/05/17 23:34 01/06/17 00:08 01/06/17 10:00 White Blood Count 15.1 x10^3/uL (4.0-11.0) 8.2 x10^3/uL (4.0-11.0) Red Blood Count 5.65 x10^6/uL (3.50-5.40) 5.03 x10^6/uL (3.50-5.40) Hemoglobin 14.1 g/dL (12.0-15.5) 12.6 g/dL (12.0-15.5) Hematocrit 43.0 % (36.0-47.0) 38.7 % (36.0-47.0) Mean Corpuscular Volume 76 fL (79-100) 77 fL (79-100) Mean Corpuscular Hemoglobin 25 pg (25-35) 25 pg (25-35) Mean Corpuscular Hemoglobin Concent 33 g/dL (31-37) 33 g/dL (31-37) Red Cell Distribution Width 18.3 % (11.5-14.5) 18.4 % (11.5-14.5) Platelet Count 245 x10^3/uL (140-400) 195 x10^3/uL (140-400) Neutrophils (%) (Auto) 90 % (31-73) 80 % (31-73) Lymphocytes (%) (Auto) 4 % (24-48) 10 % (24-48) Monocytes (%) (Auto) 7 % (0-9) 9 % (0-9) Eosinophils (%) (Auto) 0 % (0-3) 1 % (0-3) Basophils (%) (Auto) 0 % (0-3) 1 % (0-3) Neutrophils # (Auto) 13.5 x10^3uL (1.8-7.7) 6.6 x10^3uL (1.8-7.7) Lymphocytes # (Auto) 0.5 x10^3/uL (1.0-4.8) 0.8 x10^3/uL (1.0-4.8) Monocytes # (Auto) 1.0 x10^3/uL (0.0-1.1) 0.7 x10^3/uL (0.0-1.1) Eosinophils # (Auto) 0.0 x10^3/uL (0.0-0.7) 0.0 x10^3/uL (0.0-0.7) Basophils # (Auto) 0.1 x10^3/uL (0.0-0.2) 0.1 x10^3/uL (0.0-0.2) Segmented Neutrophils % 89 % (35-66) Band Neutrophils % 4 % (0-9) Lymphocytes % 3 % (24-48) Monocytes % 4 % (0-10) Platelet Estimate Adequate (ADEQUATE) Anisocytosis Slight Sodium Level 136 mmol/L (136-145) Potassium Level 3.5 mmol/L (3.5-5.1) Chloride Level 98 mmol/L (98-107) Carbon Dioxide Level 28 mmol/L (21-32) Anion Gap 10 (6-14) Blood Urea Nitrogen 14 mg/dL (7-20) Creatinine 0.8 mg/dL (0.6-1.0) Estimated GFR (Cockcroft-Gault) 71.8 BUN/Creatinine Ratio 18 (6-20) Glucose Level 118 mg/dL (70-99) Calcium Level 9.8 mg/dL (8.5-10.1) Total Bilirubin 0.5 mg/dL (0.2-1.0) Aspartate Amino Transf (AST/SGOT) 37 U/L (15-37) Alanine Aminotransferase (ALT/SGPT) 46 U/L (14-59) Alkaline Phosphatase 72 U/L (46-116) Total Protein 8.3 g/dL (6.4-8.2) Albumin 3.4 g/dL (3.4-5.0) Albumin/Globulin Ratio 0.7 (1.0-1.7) Lipase 179 U/L (73-393) Urine Collection Type Unknown Urine Color Yellow Urine Clarity Hazy Urine pH 6.5 Urine Specific [place] <=1.005 Urine Protein 30 mg/dL (NEG-TRACE) Urine Glucose (UA) Negative mg/dL (NEG) Urine Ketones (Stick) 80 mg/dL (NEG) Urine Blood Moderate (NEG) Urine Nitrite Positive (NEG) Urine Bilirubin Negative (NEG) Urine Urobilinogen Dipstick 0.2 mg/dL (0.2 mg/dL) Urine Leukocyte Esterase Trace (NEG) Urine RBC 1-2 /HPF (0-2) Urine WBC 1-4 /HPF (0-4) Urine Squamous Epithelial Cells Few /LPF Urine Bacteria Many /HPF (0-FEW) Lactic Acid Level 0.8 mmol/L (0.4-2.0) Test 01/07/17 03:40 White Blood Count 6.8 x10^3/uL (4.0-11.0) Red Blood Count 4.80 x10^6/uL (3.50-5.40) Hemoglobin 11.9 g/dL (12.0-15.5) Hematocrit 37.1 % (36.0-47.0) Mean Corpuscular Volume 77 fL (79-100) Mean Corpuscular Hemoglobin 25 pg (25-35) Mean Corpuscular Hemoglobin Concent 32 g/dL (31-37) Red Cell Distribution Width 18.3 % (11.5-14.5) Platelet Count 190 x10^3/uL (140-400) Neutrophils (%) (Auto) 64 % (31-73) Lymphocytes (%) (Auto) 22 % (24-48) Monocytes (%) (Auto) 10 % (0-9) Eosinophils (%) (Auto) 4 % (0-3) Basophils (%) (Auto) 1 % (0-3) Neutrophils # (Auto) 4.4 x10^3uL (1.8-7.7) Lymphocytes # (Auto) 1.5 x10^3/uL (1.0-4.8) Monocytes # (Auto) 0.6 x10^3/uL (0.0-1.1) Eosinophils # (Auto) 0.2 x10^3/uL (0.0-0.7) Basophils # (Auto) 0.0 x10^3/uL (0.0-0.2) Sodium Level 142 mmol/L (136-145) Potassium Level 3.3 mmol/L (3.5-5.1) Chloride Level 107 mmol/L (98-107) Carbon Dioxide Level 26 mmol/L (21-32) Anion Gap 9 (6-14) Blood Urea Nitrogen 6 mg/dL (7-20) Creatinine 0.7 mg/dL (0.6-1.0) Estimated GFR (Cockcroft-Gault) 83.7 Glucose Level 90 mg/dL (70-99) Lactic Acid Level 0.6 mmol/L (0.4-2.0) Calcium Level 8.1 mg/dL (8.5-10.1) Laboratory Tests Test 01/06/17 10:00 01/07/17 03:40 White Blood Count 8.2 x10^3/uL (4.0-11.0) 6.8 x10^3/uL (4.0-11.0) Red Blood Count 5.03 x10^6/uL (3.50-5.40) 4.80 x10^6/uL (3.50-5.40) Hemoglobin 12.6 g/dL (12.0-15.5) 11.9 g/dL (12.0-15.5) Hematocrit 38.7 % (36.0-47.0) 37.1 % (36.0-47.0) Mean Corpuscular Volume 77 fL (79-100) 77 fL (79-100) Mean Corpuscular Hemoglobin 25 pg (25-35) 25 pg (25-35) Mean Corpuscular Hemoglobin Concent 33 g/dL (31-37) 32 g/dL (31-37) Red Cell Distribution Width 18.4 % (11.5-14.5) 18.3 % (11.5-14.5) Platelet Count 195 x10^3/uL (140-400) 190 x10^3/uL (140-400) Neutrophils (%) (Auto) 80 % (31-73) 64 % (31-73) Lymphocytes (%) (Auto) 10 % (24-48) 22 % (24-48) Monocytes (%) (Auto) 9 % (0-9) 10 % (0-9) Eosinophils (%) (Auto) 1 % (0-3) 4 % (0-3) Basophils (%) (Auto) 1 % (0-3) 1 % (0-3) Neutrophils # (Auto) 6.6 x10^3uL (1.8-7.7) 4.4 x10^3uL (1.8-7.7) Lymphocytes # (Auto) 0.8 x10^3/uL (1.0-4.8) 1.5 x10^3/uL (1.0-4.8) Monocytes # (Auto) 0.7 x10^3/uL (0.0-1.1) 0.6 x10^3/uL (0.0-1.1) Eosinophils # (Auto) 0.0 x10^3/uL (0.0-0.7) 0.2 x10^3/uL (0.0-0.7) Basophils # (Auto) 0.1 x10^3/uL (0.0-0.2) 0.0 x10^3/uL (0.0-0.2) Sodium Level 142 mmol/L (136-145) Potassium Level 3.3 mmol/L (3.5-5.1) Chloride Level 107 mmol/L (98-107) Carbon Dioxide Level 26 mmol/L (21-32) Anion Gap 9 (6-14) Blood Urea Nitrogen 6 mg/dL (7-20) Creatinine 0.7 mg/dL (0.6-1.0) Estimated GFR (Cockcroft-Gault) 83.7 Glucose Level 90 mg/dL (70-99) Lactic Acid Level 0.6 mmol/L (0.4-2.0) Calcium Level 8.1 mg/dL (8.5-10.1) Microbiology 01/06/17 Blood Culture - Preliminary, Resulted NO GROWTH AFTER 1 DAY Medications Current Medications Ondansetron HCl (Zofran) 4 mg 1X ONCE IV Last administered on 01/05/17 19:29 ; Start 01/05/17 at 19:15; Stop 01/05/17 at 19:17; Status DC Sodium Chloride 1,000 ml @ 1,000 mls/hr 1X ONCE IV Last administered on 01/05 20:22; Start 01/05/17 at 20:00; Stop 01/05/17 at 20:59; Status DC Iohexol (Omnipaque 300 Mg/ml) 75 ml 1X ONCE IV Last administered on 20:10; Start 01/05/17 at 20:15; Stop 01/05/17 at 20:16; Status DC Info (Do NOT chart on this entry -- for MONITORING) 1 each PRN DAILY PRN MC SEE COMMENTS; Start 01/05/17 at 20:15; Stop 01/07/17 at 20:14 Ondansetron HCl (Zofran) 4 mg 1X ONCE IV Last administered on 01/05/17 20:22 ; Start 01/05/17 at 20:30; Stop 01/05/17 at 20:31; Status DC Sodium Chloride 1,000 ml @ 125 mls/hr 1X ONCE IV Last administered on 23:30; Start 01/05/17 at 23:30; Stop 01/06/17 at 07:29; Status DC Piperacillin Sod/ Tazobactam Sod 4.5 gm/Dextrose 100 ml @ 200 mls/hr 1X ONCE IV ; Start 01/05/17 at 23:30; Stop 01/05/17 at 23:59; Status UNV Vancomycin HCl 250 ml @ 250 mls/hr 1X ONCE IV ; Start 01/05/17 at 23:30; Stop 01/06/17 at 00:29; Status UNV Piperacillin Sod/ Tazobactam Sod (Zosyn) 4.5 gm 1X ONCE IVP Last administered on 01/06/17 00:17; Start 01/06/17 at 00:00; Stop 01/06/17 at 00:01; Status DC Vancomycin HCl (Vanco Per Pharmacy) 1 each PRN DAILY PRN MC SEE COMMENTS Last administered on 01/06/17 01:53; Start 01/05/17 at 23:30 Vancomycin HCl 2 gm/Dextrose 500 ml @ 250 mls/hr 1X ONCE IV Last administered on 01/06/17 00:20; Start 01/06/17 at 00:30; Stop 01/06/17 at 02 :29; Status DC Ondansetron HCl (Zofran) 4 mg PRN Q8HRS PRN IV NAUSEA/VOMITING Last administered on 01/06/17 22:12; Start 01/05/17 at 23:45; Stop 01/06/17 at 23 :44; Status DC Morphine Sulfate 2 mg PRN Q2HR PRN IV SEVERE PAIN Last administered on 22:12; Start 01/05/17 at 23:45; Stop 01/06/17 at 23:44; Status DC Sodium Chloride 1,000 ml @ 125 mls/hr Q8H IV Last administered on 01/06/17 11:44; Start 01/05/17 at 23:31; Stop 01/06/17 at 23:30; Status DC Sevoflurane (Ultane) 90 ml STK-MED ONCE IH ; Start 01/06/17 at 00:29; Stop at 00:30; Status DC Neostigmine Methylsulfate (Bloxiverz) 10 mg STK-MED ONCE .ROUTE ; Start at 00:29; Stop 01/06/17 at 00:30; Status DC Midazolam HCl (Versed) 2 mg STK-MED ONCE .ROUTE ; Start 01/06/17 at 00:29; Stop 01/06/17 at 00:30; Status DC Fentanyl Citrate (Fentanyl 2ml Vial) 100 mcg STK-MED ONCE .ROUTE ; Start at 00:29; Stop 01/06/17 at 00:30; Status DC Glycopyrrolate (Robinul) 1 mg STK-MED ONCE .ROUTE ; Start 01/06/17 at 00:29; Stop 01/06/17 at 00:31; Status DC Rocuronium [place] (Zemuron) 50 mg STK-MED ONCE .ROUTE ; Start 01/06/17 at 00: 30; Stop 01/06/17 at 00:31; Status DC Propofol 0 ml @ As Directed STK-MED ONCE IV ; Start 01/06/17 at 00:30; Stop at 00:31; Status DC Lidocaine HCl (Lidocaine Pf 2% Vial) 5 ml STK-MED ONCE .ROUTE ; Start 01/06/17 at 00:30; Stop 01/06/17 at 00:31; Status DC Dexamethasone Sodium Phosphate (Decadron) 20 mg STK-MED ONCE .ROUTE ; Start at 00:30; Stop 01/06/17 at 00:31; Status DC Ondansetron HCl (Zofran) 4 mg STK-MED ONCE .ROUTE ; Start 01/06/17 at 00:30; Stop 01/06/17 at 00:31; Status DC Succinylcholine Chloride (Anectine) 200 mg STK-MED ONCE .ROUTE ; Start at 00:32; Stop 01/06/17 at 00:33; Status DC Piperacillin Sod/ Tazobactam Sod 3.375 gm/Dextrose 50 ml @ 100 mls/hr 1X ONCE IV ; Start 01/06/17 at 01:30; Stop 01/06/17 at 01:59; Status UNV Vancomycin HCl 1.25 gm/Dextrose 250 ml @ 167 mls/hr Q12H IV Last administered on 01/07/17 00:47; Start 01/06/17 at 13:00 Vancomycin HCl 1 each 1X ONCE MC ; Start 01/07/17 at 12:30; Stop 01/07/17 at 12:31 Ceftriaxone Sodium 1 gm/ Dextrose 50 ml @ 100 mls/hr Q24H IV ; Start 01/06/17 at 09:30; Status UNV Ceftriaxone Sodium (Rocephin) 1 gm Q24H IVP Last administered on 01/06/17t 10: 30; Start 01/06/17 at 10:00 Active Scripts Active Reported [wkly pill/osteo] Naproxen Sodium 550 Mg Tablet 1 Tab PO BID Ocuvite Lutein 25-5 mg Softgel (Lutein/Zeaxanthin) 1 Each Capsule 1 Each PO DAILY [calcium] [vitamin] Vitals/I & O Vital Sign - Last 24 Hours 01/06/17 01/06/17 01/06/17 01/06/17 08:00 11:00 15:00 19:00 Temp 97.9 97.9 99.5 97.9 97.9 99.5 Pulse 71 78 78 Resp 18 18 18 B/P (MAP) 104/61 (75) 128/66 (86) 114/67 (83) Pulse Ox 92 92 92 O2 Delivery Room Air Room Air Room Air Room Air 01/06/17 01/06/17 01/06/17 01/07/17 20:00 22:12 23:00 03:00 Temp 99.1 98.7 99.1 98.7 Pulse 75 72 Resp 18 16 16 B/P (MAP) 114/69 (84) 107/65 (79) Pulse Ox 91 92 O2 Delivery Room Air Room Air Intake and Output 01/06/17 01/06/17 01/07/17 15:00 23:00 07:00 Intake Total 1100 ml 1490 ml Output Total 2 ml Balance 1100 ml 1488 ml ELIZA ZAVALA MD Jan 07, 2017 07:35
--- NOTE | 2017-01-07 08:48 | RAD ---
AP abdominal radiograph 01/07/2017 Clinical indication: Follow-up small bowel obstruction. Comparison: Abdominal radiograph 01/06/2017 Findings: There is a right upper quadrant biliary stent. Improvement in gaseous distended small bowel loops with scattered gas noted to the level of the rectum. There is surgical suture material in the right mid abdomen. Impression: Nonobstructive bowel gas pattern.
[2017-01-07 10:28] VITALS: BP 116/59
[2017-01-07] MEDS: cefTRIAXone IV Push 1 GM VIAL. IVP SCH (10:44)
[2017-01-07 14:32] VITALS: BP 120/72
[2017-01-07] MEDS: VANCOMYCIN PER PHARMACY MC PRN (16:06)
--- NOTE | 2017-01-07 17:05 | PDOC ---
PROGRESS NOTES Subjective Subjective Patient feeling better. KUB back to normal. Patient tolerating clear liquids. Patient passing gas but no BM yet. Surgery signed off. Objective Objective Vital Signs Date Time Temp Pulse Resp B/P (MAP) Pulse Ox O2 Delivery O2 Flow Rate FiO2 01/07/17 14:32 98.4 76 17 120/72 (88) 92 Room Air 98.4 Intake and Output 01/07/17 07:00 Intake Total 2590 ml Output Total 2 ml Balance 2588 ml Intake Oral 1340 ml IV Total 1250 ml Output Urine Total 2 ml # Voids 5 Physical Exam Abdomen: Normal bowel sounds, Other (mild tender RUQ, neg rebound and guarding) Extremities: No edema General: Alert Lungs: Clear to auscultation Assessment Assessment Problems Medical Problems: (1) Abdominal pain Status: Acute (2) Abdominal wall hernia Status: Acute (3) Leukocytosis Status: Acute (4) Small bowel obstruction Status: Acute Partial SBO - resolved with NPO status Ventral Hernia Hx of Chronic Biliary Stent UTI Plan Plan of Care Advance diet Home in AM if tolerating PO switch to PO meds F/U with [facility] general surgery Continue Antibx for UTI Comment Review of Relevant I have reviewed the following items harvinder (where applicable) has been applied. Labs Laboratory Tests Test 01/05/17 19:15 01/05/17 23:34 01/06/17 00:08 01/06/17 10:00 White Blood Count 15.1 x10^3/uL (4.0-11.0) 8.2 x10^3/uL (4.0-11.0) Red Blood Count 5.65 x10^6/uL (3.50-5.40) 5.03 x10^6/uL (3.50-5.40) Hemoglobin 14.1 g/dL (12.0-15.5) 12.6 g/dL (12.0-15.5) Hematocrit 43.0 % (36.0-47.0) 38.7 % (36.0-47.0) Mean Corpuscular Volume 76 fL (79-100) 77 fL (79-100) Mean Corpuscular Hemoglobin 25 pg (25-35) 25 pg (25-35) Mean Corpuscular Hemoglobin Concent 33 g/dL (31-37) 33 g/dL (31-37) Red Cell Distribution Width 18.3 % (11.5-14.5) 18.4 % (11.5-14.5) Platelet Count 245 x10^3/uL (140-400) 195 x10^3/uL (140-400) Neutrophils (%) (Auto) 90 % (31-73) 80 % (31-73) Lymphocytes (%) (Auto) 4 % (24-48) 10 % (24-48) Monocytes (%) (Auto) 7 % (0-9) 9 % (0-9) Eosinophils (%) (Auto) 0 % (0-3) 1 % (0-3) Basophils (%) (Auto) 0 % (0-3) 1 % (0-3) Neutrophils # (Auto) 13.5 x10^3uL (1.8-7.7) 6.6 x10^3uL (1.8-7.7) Lymphocytes # (Auto) 0.5 x10^3/uL (1.0-4.8) 0.8 x10^3/uL (1.0-4.8) Monocytes # (Auto) 1.0 x10^3/uL (0.0-1.1) 0.7 x10^3/uL (0.0-1.1) Eosinophils # (Auto) 0.0 x10^3/uL (0.0-0.7) 0.0 x10^3/uL (0.0-0.7) Basophils # (Auto) 0.1 x10^3/uL (0.0-0.2) 0.1 x10^3/uL (0.0-0.2) Segmented Neutrophils % 89 % (35-66) Band Neutrophils % 4 % (0-9) Lymphocytes % 3 % (24-48) Monocytes % 4 % (0-10) Platelet Estimate Adequate (ADEQUATE) Anisocytosis Slight Sodium Level 136 mmol/L (136-145) Potassium Level 3.5 mmol/L (3.5-5.1) Chloride Level 98 mmol/L (98-107) Carbon Dioxide Level 28 mmol/L (21-32) Anion Gap 10 (6-14) Blood Urea Nitrogen 14 mg/dL (7-20) Creatinine 0.8 mg/dL (0.6-1.0) Estimated GFR (Cockcroft-Gault) 71.8 BUN/Creatinine Ratio 18 (6-20) Glucose Level 118 mg/dL (70-99) Calcium Level 9.8 mg/dL (8.5-10.1) Total Bilirubin 0.5 mg/dL (0.2-1.0) Aspartate Amino Transf (AST/SGOT) 37 U/L (15-37) Alanine Aminotransferase (ALT/SGPT) 46 U/L (14-59) Alkaline Phosphatase 72 U/L (46-116) Total Protein 8.3 g/dL (6.4-8.2) Albumin 3.4 g/dL (3.4-5.0) Albumin/Globulin Ratio 0.7 (1.0-1.7) Lipase 179 U/L (73-393) Urine Collection Type Unknown Urine Color Yellow Urine Clarity Hazy Urine pH 6.5 Urine Specific Webster <=1.005 Urine Protein 30 mg/dL (NEG-TRACE) Urine Glucose (UA) Negative mg/dL (NEG) Urine Ketones (Stick) 80 mg/dL (NEG) Urine Blood Moderate (NEG) Urine Nitrite Positive (NEG) Urine Bilirubin Negative (NEG) Urine Urobilinogen Dipstick 0.2 mg/dL (0.2 mg/dL) Urine Leukocyte Esterase Trace (NEG) Urine RBC 1-2 /HPF (0-2) Urine WBC 1-4 /HPF (0-4) Urine Squamous Epithelial Cells Few /LPF Urine Bacteria Many /HPF (0-FEW) Lactic Acid Level 0.8 mmol/L (0.4-2.0) Test 01/07/17 03:40 01/07/17 12:30 White Blood Count 6.8 x10^3/uL (4.0-11.0) Red Blood Count 4.80 x10^6/uL (3.50-5.40) Hemoglobin 11.9 g/dL (12.0-15.5) Hematocrit 37.1 % (36.0-47.0) Mean Corpuscular Volume 77 fL (79-100) Mean Corpuscular Hemoglobin 25 pg (25-35) Mean Corpuscular Hemoglobin Concent 32 g/dL (31-37) Red Cell Distribution Width 18.3 % (11.5-14.5) Platelet Count 190 x10^3/uL (140-400) Neutrophils (%) (Auto) 64 % (31-73) Lymphocytes (%) (Auto) 22 % (24-48) Monocytes (%) (Auto) 10 % (0-9) Eosinophils (%) (Auto) 4 % (0-3) Basophils (%) (Auto) 1 % (0-3) Neutrophils # (Auto) 4.4 x10^3uL (1.8-7.7) Lymphocytes # (Auto) 1.5 x10^3/uL (1.0-4.8) Monocytes # (Auto) 0.6 x10^3/uL (0.0-1.1) Eosinophils # (Auto) 0.2 x10^3/uL (0.0-0.7) Basophils # (Auto) 0.0 x10^3/uL (0.0-0.2) Sodium Level 142 mmol/L (136-145) Potassium Level 3.3 mmol/L (3.5-5.1) Chloride Level 107 mmol/L (98-107) Carbon Dioxide Level 26 mmol/L (21-32) Anion Gap 9 (6-14) Blood Urea Nitrogen 6 mg/dL (7-20) Creatinine 0.7 mg/dL (0.6-1.0) Estimated GFR (Cockcroft-Gault) 83.7 Glucose Level 90 mg/dL (70-99) Lactic Acid Level 0.6 mmol/L (0.4-2.0) Calcium Level 8.1 mg/dL (8.5-10.1) Vancomycin Level Trough 12.6 mcg/mL (10.0-20.0) Vancomycin Last Dose Date 01/07/17 Vancomycin Last Dose Time 0100 Laboratory Tests Test 01/07/17 03:40 01/07/17 12:30 White Blood Count 6.8 x10^3/uL (4.0-11.0) Red Blood Count 4.80 x10^6/uL (3.50-5.40) Hemoglobin 11.9 g/dL (12.0-15.5) Hematocrit 37.1 % (36.0-47.0) Mean Corpuscular Volume 77 fL (79-100) Mean Corpuscular Hemoglobin 25 pg (25-35) Mean Corpuscular Hemoglobin Concent 32 g/dL (31-37) Red Cell Distribution Width 18.3 % (11.5-14.5) Platelet Count 190 x10^3/uL (140-400) Neutrophils (%) (Auto) 64 % (31-73) Lymphocytes (%) (Auto) 22 % (24-48) Monocytes (%) (Auto) 10 % (0-9) Eosinophils (%) (Auto) 4 % (0-3) Basophils (%) (Auto) 1 % (0-3) Neutrophils # (Auto) 4.4 x10^3uL (1.8-7.7) Lymphocytes # (Auto) 1.5 x10^3/uL (1.0-4.8) Monocytes # (Auto) 0.6 x10^3/uL (0.0-1.1) Eosinophils # (Auto) 0.2 x10^3/uL (0.0-0.7) Basophils # (Auto) 0.0 x10^3/uL (0.0-0.2) Sodium Level 142 mmol/L (136-145) Potassium Level 3.3 mmol/L (3.5-5.1) Chloride Level 107 mmol/L (98-107) Carbon Dioxide Level 26 mmol/L (21-32) Anion Gap 9 (6-14) Blood Urea Nitrogen 6 mg/dL (7-20) Creatinine 0.7 mg/dL (0.6-1.0) Estimated GFR (Cockcroft-Gault) 83.7 Glucose Level 90 mg/dL (70-99) Lactic Acid Level 0.6 mmol/L (0.4-2.0) Calcium Level 8.1 mg/dL (8.5-10.1) Vancomycin Level Trough 12.6 mcg/mL (10.0-20.0) Vancomycin Last Dose Date 01/07/17 Vancomycin Last Dose Time 0100 Microbiology 01/06/17 Blood Culture - Preliminary, Resulted NO GROWTH AFTER 1 DAY 01/05/17 Urine Culture - Preliminary, Resulted 01/05/17 Urine Culture Result 1 (GALLITO) - Preliminary, Resulted Medications Current Medications Ondansetron HCl (Zofran) 4 mg 1X ONCE IV Last administered on 01/05/17t 19:29 ; Start 01/05/17 at 19:15; Stop 01/05/17 at 19:17; Status DC Sodium Chloride 1,000 ml @ 1,000 mls/hr 1X ONCE IV Last administered on 01/05 20:22; Start 01/05/17 at 20:00; Stop 01/05/17 at 20:59; Status DC Iohexol (Omnipaque 300 Mg/ml) 75 ml 1X ONCE IV Last administered on 20:10; Start 01/05/17 at 20:15; Stop 01/05/17 at 20:16; Status DC Info (Do NOT chart on this entry -- for MONITORING) 1 each PRN DAILY PRN MC SEE COMMENTS; Start 01/05/17 at 20:15; Stop 01/07/17 at 20:14 Ondansetron HCl (Zofran) 4 mg 1X ONCE IV Last administered on 01/05/17 20:22 ; Start 01/05/17 at 20:30; Stop 01/05/17 at 20:31; Status DC Sodium Chloride 1,000 ml @ 125 mls/hr 1X ONCE IV Last administered on 23:30; Start 01/05/17 at 23:30; Stop 01/06/17 at 07:29; Status DC Piperacillin Sod/ Tazobactam Sod 4.5 gm/Dextrose 100 ml @ 200 mls/hr 1X ONCE IV ; Start 01/05/17 at 23:30; Stop 01/05/17 at 23:59; Status UNV Vancomycin HCl 250 ml @ 250 mls/hr 1X ONCE IV ; Start 01/05/17 at 23:30; Stop 01/06/17 at 00:29; Status UNV Piperacillin Sod/ Tazobactam Sod (Zosyn) 4.5 gm 1X ONCE IVP Last administered on 01/06/17 00:17; Start 01/06/17 at 00:00; Stop 01/06/17 at 00:01; Status DC Vancomycin HCl (Vanco Per Pharmacy) 1 each PRN DAILY PRN MC SEE COMMENTS Last administered on 01/07/17 16:06; Start 01/05/17 at 23:30; Stop 01/07/17 at 16 :58; Status DC Vancomycin HCl 2 gm/Dextrose 500 ml @ 250 mls/hr 1X ONCE IV Last administered on 01/06/17 00:20; Start 01/06/17 at 00:30; Stop 01/06/17 at 02 :29; Status DC Ondansetron HCl (Zofran) 4 mg PRN Q8HRS PRN IV NAUSEA/VOMITING Last administered on 01/06/17 22:12; Start 01/05/17 at 23:45; Stop 01/06/17 at 23 :44; Status DC Morphine Sulfate 2 mg PRN Q2HR PRN IV SEVERE PAIN Last administered on 22:12; Start 01/05/17 at 23:45; Stop 01/06/17 at 23:44; Status DC Sodium Chloride 1,000 ml @ 125 mls/hr Q8H IV Last administered on 01/06/17 11:44; Start 01/05/17 at 23:31; Stop 01/06/17 at 23:30; Status DC Sevoflurane (Ultane) 90 ml STK-MED ONCE IH ; Start 01/06/17 at 00:29; Stop at 00:30; Status DC Neostigmine Methylsulfate (Bloxiverz) 10 mg STK-MED ONCE .ROUTE ; Start at 00:29; Stop 01/06/17 at 00:30; Status DC Midazolam HCl (Versed) 2 mg STK-MED ONCE .ROUTE ; Start 01/06/17 at 00:29; Stop 01/06/17 at 00:30; Status DC Fentanyl Citrate (Fentanyl 2ml Vial) 100 mcg STK-MED ONCE .ROUTE ; Start at 00:29; Stop 01/06/17 at 00:30; Status DC Glycopyrrolate (Robinul) 1 mg STK-MED ONCE .ROUTE ; Start 01/06/17 at 00:29; Stop 01/06/17 at 00:31; Status DC Rocuronium Margie (Zemuron) 50 mg STK-MED ONCE .ROUTE ; Start 01/06/17 at 00: 30; Stop 01/06/17 at 00:31; Status DC Propofol 0 ml @ As Directed STK-MED ONCE IV ; Start 01/06/17 at 00:30; Stop at 00:31; Status DC Lidocaine HCl (Lidocaine Pf 2% Vial) 5 ml STK-MED ONCE .ROUTE ; Start 01/06/17 at 00:30; Stop 01/06/17 at 00:31; Status DC Dexamethasone Sodium Phosphate (Decadron) 20 mg STK-MED ONCE .ROUTE ; Start at 00:30; Stop 01/06/17 at 00:31; Status DC Ondansetron HCl (Zofran) 4 mg STK-MED ONCE .ROUTE ; Start 01/06/17 at 00:30; Stop 01/06/17 at 00:31; Status DC Succinylcholine Chloride (Anectine) 200 mg STK-MED ONCE .ROUTE ; Start at 00:32; Stop 01/06/17 at 00:33; Status DC Piperacillin Sod/ Tazobactam Sod 3.375 gm/Dextrose 50 ml @ 100 mls/hr 1X ONCE IV ; Start 01/06/17 at 01:30; Stop 01/06/17 at 01:59; Status UNV Vancomycin HCl 1.25 gm/Dextrose 250 ml @ 167 mls/hr Q12H IV Last administered on 01/07/17t 13:47; Start 01/06/17 at 13:00; Stop 01/07/17 at 16:58; Status DC Vancomycin HCl 1 each 1X ONCE MC Last administered on 01/07/17 12:30; Start 01/07/17 at 12:30; Stop 01/07/17 at 12:31; Status DC Ceftriaxone Sodium 1 gm/ Dextrose 50 ml @ 100 mls/hr Q24H IV ; Start 01/06/17 at 09:30; Status UNV Ceftriaxone Sodium (Rocephin) 1 gm Q24H IVP Last administered on 01/07/17 10: 44; Start 01/06/17 at 10:00 Lactobacillus Rhamnosus (Culturelle) 1 cap BID PO ; Start 01/07/17 at 21:00 Active Scripts Active Reported [wkly pill/osteo] Naproxen Sodium 550 Mg Tablet 1 Tab PO BID Ocuvite Lutein 25-5 mg Softgel (Lutein/Zeaxanthin) 1 Each Capsule 1 Each PO DAILY [calcium] [vitamin] Vitals/I & O Vital Sign - Last 24 Hours 01/06/17 01/06/17 01/06/17 01/06/17 19:00 20:00 22:12 23:00 Temp 99.5 99.1 99.5 99.1 Pulse 78 75 Resp 18 18 16 B/P (MAP) 114/67 (83) 114/69 (84) Pulse Ox 92 91 O2 Delivery Room Air Room Air Room Air 01/07/17 01/07/17 01/07/17 01/07/17 03:00 07:00 10:28 14:32 Temp 98.7 98.4 98.5 98.4 98.7 98.4 98.5 98.4 Pulse 72 76 73 76 Resp 17 B/P (MAP) 107/65 (79) 108/67 (81) 116/59 (78) 120/72 (88) Pulse Ox 92 91 93 92 O2 Delivery Room Air Room Air Room Air Intake and Output 01/06/17 01/06/17 01/07/17 15:00 23:00 07:00 Intake Total 1100 ml 1490 ml Output Total 2 ml Balance 1100 ml 1488 ml ED BEAR MD Jan 07, 2017 17:05
[2017-01-07 19:00] VITALS: BP 130/75
[2017-01-07] MEDS: LACTOBACILLUS RHAMNOSUS GG 1 CAPSULE. PO SCH (20:16)
[2017-01-07] MEDS: CEPHALEXIN 250 MG CAPSULE. PO SCH (20:16)
[2017-01-07 22:37] VITALS: BP 117/73
[2017-01-08 02:45] VITALS: BP 132/73
[2017-01-08 06:32] LABS: CREATININE 0.7 mg/dL (0.6-1.0); GFR 83.7
[2017-01-08 07:31] VITALS: BP 129/75
[2017-01-08] MEDS: CEPHALEXIN 250 MG CAPSULE. PO SCH (08:22)
[2017-01-08] MEDS: LACTOBACILLUS RHAMNOSUS GG 1 CAPSULE. PO SCH (08:22)
[2017-01-08 10:30] VITALS: BP 134/74
[2017-01-08] MEDS ORDERED: CEPH-264 PO (11:55)
--- NOTE | 2017-01-08 12:18 | DS ---
DATE OF DISCHARGE: 01/08/2017 ADMITTING DIAGNOSIS: Partial small-bowel obstruction. DISMISSAL DIAGNOSES: Partial small-bowel obstruction. SECONDARY DIAGNOSES: 1. Ventral hernia. 2. History of chronic biliary stent. 3. Urinary tract infection. HISTORY OF PRESENT ILLNESS AND HOSPITAL COURSE: This patient is a 66-year-old female who came in with increasing abdominal pain, nausea, vomiting. KUB showed evidence of small-bowel obstruction. She was placed on n.p.o. status, given IV fluids and improved without need for surgery. The patient does have a long history of previous surgeries for complicated gallbladder disease with biliary stent placement and multiple adhesions. This will be addressed by [facility] General Surgery who initially did the repairs on followup to prevent further episodes of small-bowel obstruction. During hospital stay, the patient improved and returned back to baseline, tolerating diet and having bowel movements. Therefore, she was discharged to home. She was found to have a UTI during hospitalization and was treated with Keflex. This will be continued for 1 week post-hospitalization. She will follow up in the office in 1 week for continued care. ED BEAR MD DR: DENNIS/rosenda JOB#: [id number] / [id number]
== END 2017-01-08 15:11 | disposition home or self-care (01) | DRG 394 ==
LOC: ER 18:47 → 5 SOUTH 23:20
PROVIDERS: ADMIT Family Medicine; ATTEND Family Medicine
DX: K43.0 Incisional hernia with obstruction, without gangrene (principal); N39.0 Urinary tract infection, site not specified; M19.90 Unspecified osteoarthritis, unspecified site; M81.0 Age-related osteoporosis without current pathological fracture; Z90.49 Acquired absence of other specified parts of digestive tract; Z83.3 Family history of diabetes mellitus; Z82.49 Family history of ischemic heart disease and other diseases of the circulatory system; Z82.0 Family history of epilepsy and other diseases of the nervous system; Z87.891 Personal history of nicotine dependence
CPT/HCPCS: 36415; 74000; 74177; 80048; 80053; 80202; 81001; 82565; 83605; 83690; 85007; 85025; 87040; 87086; 87186; 93005; 96361; 96365; 96375; 96376; J0330; J0696; J1100; J2250; J2270; J2405; J2543; J2704; J2710; J3010; J3370; J3490; J7030; Q9967; 99285-25; J2001

== ENCOUNTER → 2017-01-22 | Outpatient (CLI) | payer MEDICARE, OTHER ==
[2017-01-08 10:30] VITALS: BP 134/74
[~2017-01-22] MED LIST: CEPH-264 PO; LUTE1CAP5 PO; NAPR-677 PO; [UNRECOGNIZED DRUG - REMARK]; calcium; vitamin
--- NOTE | 2017-01-22 09:31 | KCIC ---
Bone Densitometry History: Postmenopausal female. Findings: Bone Densitometry was performed with dual photon absorption of the lumbar spine and proximal femurs. Lumbar Spine: Bone density is 0.947 g/cm2 for L1-L4. T-score is -0.9. Z-score is 0.9. Left total femur: Bone density is 0.827 g/cm2. T-score is -0.9. Z-score is 0.3. IMPRESSION: Bone mineral densities of the lumbar spine and left total femur are low normal. World Health Organization definition of osteoporosis and osteopenia for women: normal equals T score at or above -1.0 standard deviations; osteopenia equals T score between -1.0 and -2.5 standard deviations; osteoporosis equals T score at or below -2.5 standard deviations. Electronically signed by: Richmond Grover MD (01/22/2017 9:27 AM) [id number]
== END | disposition home or self-care (01) ==
LOC: KCIC DEXA 08:55
PROVIDERS: ATTEND Family Medicine
DX: M81.0 Age-related osteoporosis without current pathological fracture (principal); Z78.0 Asymptomatic menopausal state
CPT/HCPCS: 77080

== ENCOUNTER → 2017-10-12 | Outpatient (CLI) | payer MEDICARE, OTHER ==
--- NOTE | 2017-10-13 12:01 | SLEEP ---
DATE OF STUDY: 10/12/2017 ATTENDING PHYSICIAN: Dr. Omari Mckeon. The patient is a 66-year-old who weighs 215 pounds with a BMI of 34. The patient's [place] score was 8. The patient underwent sleep study at [facility]. During the night study, the patient spent 416 minutes in bed and slept for 377 minutes with a sleep efficiency of 91%. Sleep latency was 12 minutes with a REM latency of 186 minutes. Overall, sleep architecture showed normal stage 1 sleep, increased stage 2 sleep, normal slow wave and reduced REM sleep. During the night study, the patient had 13 obstructive apneas, 1 mixed apnea, 2 central apneas and 93 hypopneas. The patient's apnea-hypopnea index was 17 per hour, supine index 26 per hour with a REM index of 82 per hour. EKG monitoring revealed normal sinus rhythm, average heart rate was 84 beats per minute. No arrhythmias observed. Nocturnal oximetry study revealed an average oxygen saturation of 92% with the lowest of 65%. 82% of time, oxygen saturation remained between 80% and 89% and 5% of time between 70 and 79%. Nocturnal hypoxia was worse during REM sleep. PLMs were seen at index of 1 per hour and none caused EEG arousals. IMPRESSION: 1. Moderate sleep apnea-hypopnea syndrome with worsening during REM sleep, total AHI 17 per hour with a REM AHI of 82 per hour. 2. Nocturnal hypoxia, which was worse during REM sleep. This is related to underlying obstructive sleep apnea. 3. No clinically significant PLMs. RECOMMENDATIONS: 1. The patient would benefit from in-lab CPAP titration study. Alternate treatment option would include use of an oral appliance. 2. If patient undergoes CPAP titration, then she should be followed up in 4-6 weeks to assess compliance with CPAP and to document clinical improvement. 3. Weight loss is strongly advised. 4. Avoid CAR [employer]ENTAL DEL[employer] depressants. 5. Caution regarding driving until symptoms of sleep apnea resolve with the above recommendations. VLADIMIR HERNANDEZ MD DR: COURTNEY/rosenda JOB#: [id number] / [id number] OMARI Sloan MD
== END | disposition home or self-care (01) ==
LOC: SLPLAB 18:31
PROVIDERS: ATTEND Family Medicine
DX: G47.33 Obstructive sleep apnea (adult) (pediatric) (principal); G47.34 Idiopathic sleep related nonobstructive alveolar hypoventilation; Z82.49 Family history of ischemic heart disease and other diseases of the circulatory system; Z82.0 Family history of epilepsy and other diseases of the nervous system; Z83.3 Family history of diabetes mellitus; Z87.891 Personal history of nicotine dependence; Z90.49 Acquired absence of other specified parts of digestive tract
CPT/HCPCS: 95810

== ENCOUNTER 2019-12-20 06:44 | Outpatient (CLI) | payer MEDICARE, OTHER ==
[2019-12-20] VITALS (19 sets, daily range): BP systolic 102–148; BP diastolic 45–79
[~2019-12-20] VITALS: Ht 170.2 cm; Wt 95.3 kg
[2019-12-20 07:35] LABS: BASO # 0.1 x10^3/uL (0.0-0.2); BASO % 1 % (0-3); EOS # 0.2 x10^3/uL (0.0-0.7); EOS % 3 % (0-3); HEMATOCRIT 43.7 % (36.0-47.0); HEMOGLOBIN 14.5 g/dL (12.0-15.5); LYMPH # 0.9 x10^3/uL (1.0-4.8); LYMPH % 11 % (24-48); MEAN CORPUSCULAR HEMOGLOBIN 28 pg (25-35); MEAN CORPUSCULAR HGB CONC 33 g/dL (31-37); MEAN CORPUSCULAR VOLUME 85 fL (79-100); MONO # 0.6 x10^3/uL (0.0-1.1); MONO % 8 % (0-9); NEUT # 6.2 x10^3/uL (1.8-7.7); NEUT % 78 % (31-73); PLATELET COUNT 216 x10^3/uL (140-400); RED BLOOD COUNT 5.17 x10^6/uL (3.50-5.40); RED CELL DISTRIBUTION WIDTH 14.6 % (11.5-14.5)
[2019-12-20 07:45] LABS: PROTHROMBIN TIME PATIENT 13.2 SEC (11.7-14.0)
[2019-12-20] MEDS ORDERED: VIT1CAPS17 PO (08:01)
[2019-12-20] MEDS ORDERED: BIOT5000 PO (08:01)
[2019-12-20] MEDS ORDERED: METH454P2 PO (08:01)
[2019-12-20] MEDS ORDERED: CALC-497 PO (08:01)
[2019-12-20] MEDS ORDERED: ALEN70TA60 PO (08:01)
[2019-12-20] MEDS ORDERED: LIDOCAINE WITH 8.4% SOD BICARB 3 ML DISP.SYRIN. ONE (08:09)
[2019-12-20] MEDS ORDERED: LIDOCAINE WITH 8.4% SOD BICARB 3 ML DISP.SYRIN. IJ ONE (08:15)
[2019-12-20] MEDS ORDERED: fentaNYL PF VIAL 100 MCG/2 ML VIAL IV ONE (08:15)
[2019-12-20] MEDS ORDERED: MIDAZOLAM HCL/PF 2 MG/2 ML VIAL. IV ONE (08:15)
[2019-12-20] MEDS ORDERED: MIDAZOLAM HCL/PF 2 MG/2 ML VIAL. ONE (08:24)
[2019-12-20] MEDS ORDERED: fentaNYL PF VIAL 100 MCG/2 ML VIAL ONE (08:25)
[2019-12-20] MEDS ORDERED: HYDROcodone/APAP 7.5/325MG 1 TAB TABLET PO ONE (09:15)
[2019-12-20] MEDS ORDERED: fentaNYL PF VIAL 100 MCG/2 ML VIAL IVP PRN (09:15)
--- NOTE | 2019-12-20 12:54 | NUR ---
Discharge Note: AMITA ARMAS Discharge instructions and discharge home medications reviewed with Patient and a copy given. All questions have been answered and understanding verbalized. The following instructions and handouts were given: MODERATE SEDATION AND LUNG BIOPSY AFTER CARE. Discontinued RIGHT HAND PIV, BAND AID APPLIED. Patient discharged to HOME VIA PRIVATE VEHICLE, WITH HER SPOUSE.
--- NOTE | 2019-12-20 14:55 | RAD ---
CHEST AP ONLY, CHEST AP ONLY Clinical History: Reason: Lung biopsy / Spl. Instructions: / History: One view chest: 9:44 AM Technique: AP view of the chest was obtained at 12/20/2019 9:44 AM. Comparison: None. Findings: The cardiomediastinal silhouette is normal. The pulmonary vasculature is normal. There is a mass in the lower left lung. Blunting of left costophrenic angle could be chronic. Impression: Mass lower left lung. End impression One view chest 11:44 AM: The mass is again seen in the lower left lung. There is no pneumothorax. The lungs are clear. The heart and pulmonary vessels appear normal. IMPRESSION: No pneumothorax. Electronically signed by: Kevin Lewis III, MD (12/20/2019 2:52 PM) [facility]
--- NOTE | 2019-12-22 11:25 | RAD ---
12/22/2019 9:20 AM Procedure: CT-guided biopsy, left lung nodule Clinical Indication: 69-year-old female with round left upper lobe pulmonary nodule measuring approximately 2.7 cm in diameter Discussion: The procedure was explained in its entirety to the patient or the patients designated automobile rental representative by a member of the treatment team, including a discussion of the risks, benefits and commonly accepted alternatives to the procedure, as well as the expected consequences of no therapy whatsoever. Discussion of the risks included, but was not limited to, those that are most frequent and those that are rare but possibly severe or life-threatening, as well as the possibility of unforeseen complications. All elements of maximal sterile barrier technique including the use of a cap, mask, sterile gown, sterile gloves, large sterile sheet, appropriate hand hygiene, and 2% chlorhexidine for cutaneous antisepsis (or acceptable alternative antiseptic per current guidelines) were followed for this procedure. CT imaging demonstrates a rounded left upper lobe nodule measuring approximately 2.7 cm in diameter. The overlying skin was prepped and draped as described. 1% lidocaine was administered for local anesthesia. Under intermittent CT guidance a 17-gauge needle was advanced into the nodule. Core biopsies were obtained and placed in formalin. The needle was removed. Manual pressure was held. Repeat CT imaging demonstrates minimal blood in the pleural space as well as minimal perilesional hemorrhage. No pneumothorax is seen. The patient remained hemodialysis stable. The procedures performed under conscious sedation including continuous cardiopulmonary monitoring via dedicated sedation nurse. [id number] sedation time: 37 minutes Impression: CT-guided biopsy, left upper lobe pulmonary nodule
--- NOTE | 2019-12-23 10:08 | PATHOLOGY ---
[facility] Accession Number: [id number] . 01 Material submitted: . lung - LEFT LUNG NODULE. Modifiers: left . 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 See comment. (JPM:[facility] 12/23/2019) [facility] 12/23/2019 0747 Local . 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 There are densely cellular areas of the neoplasm composed of spindle cells which possess elongate, ovoid nuclei having a fairly bland chromatin distribution. There are less cellular areas of the tumor which show an admixture of thick collagen fibers. There appears to be focal entrapped bland epithelium and/or mesothelium within the tumor. There are no areas of necrosis or increased mitotic activity. There is no significant inflammatory cell component. A panel of immunoperoxidase stains is obtained on block A1 and yields the following results: . Cytokeratin Abdirashid: Tumor cells negative CAM5.2: Tumor cells negative BCL2: Tumor cells positive CD34: Tumor cells positive S100: Tumor cells negative Calretinin: Few scattered tumor cells positive D2-40: Tumor cells negative . 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 Because the differential diagnosis is lengthy, and the fact that there are densely cellular areas, the case is forwarded to the [facility] for consultation. The case is also examined by Dr. Jr Diamond, who concurs with the diagnosis. (JPM:[facility] 12/23/2019) . Special stains performed: Immunoperoxidase for cytokeratin Abdirashid, CAM5.2, BCL2, CD34, S100, calretinin, and D2-40. . 02 Electronically signed: . Bro Méndez MD, Pathologist NPI- [id number] . 01 Gross description: . The specimen is received in formalin, labeled "Maxine Orellana, left lung BX" and consists of 2 delicate needle cores of pink-jean to brown tissue measuring between 0.8 cm and 1.6 cm in length and 0.1 cm each in diameter which are entirely submitted in A1. (SDY; 12/20/2019) SYU/SYU 12/20/2019 1753 Local . 02 Pathologist provided ICD-10: C34.92 . 02 CPT . 393302, L72640, K08201 Specimen Comment: A courtesy copy of this report has been sent to [phone], [phone] Specimen Comment: [id number], Specimen Comment: Report sent to ,DR WEEMS / DR BEAR Performed at: 01 [facility] [address], [place] [id number] MD Noble Roe MD Phone: [phone] Performed at: 02 [facility] [address], [place] [id number] MD Bro Méndez MD Phone: [phone]
== END 2019-12-20 12:45 ==
LOC: INTRAD 06:44
PROVIDERS: ATTEND Internal Medicine Pulmonary Disease
DX: C34.92 Malignant neoplasm of unspecified part of left bronchus or lung (principal); Z79.01 Long term (current) use of anticoagulants; Z87.891 Personal history of nicotine dependence; Z79.899 Other long term (current) drug therapy
CPT/HCPCS: 32405; 36415; 71045; 77012; 85025; 85610; 99152; 99153; J2250; J3010; J3490

== ENCOUNTER → 2019-12-30 | Outpatient (CLI) | payer MEDICARE, OTHER ==
[2019-12-20 12:40] VITALS: BP 139/69
[~2019-12-30] MED LIST changes: +ALEN70TA60 PO; +BIOT5000 PO; +CALC-497 PO; +METH454P2 PO; +VIT1CAPS17 PO
--- NOTE | 2019-12-30 14:32 | RAD ---
EXAM: Dual modality PET-CT Scan DATE: 12/30/2019 RADIOPHARMACEUTICAL: 14.6 mCi F-18 fluorodeoxyglucose (FDG) IV. CLINICAL HISTORY: Pulmonary nodule. Unknown primary malignancy. COMPARISON: CT dated 11/21/2019. TECHNIQUE: Approximately 45 minutes after tracer administration, routine, attenuation-corrected Positron Emission Tomography (PET) images were obtained from the level of the base of the skull through the level of the mid thighs. Tomographic reconstructions are reviewed in coronal, transaxial and sagittal planes. Non-contrast CT imaging was performed for attenuation correction and localization purposes only. These images do not constitute a diagnostic-quality CT examination and were not used to diagnose disease independently of the PET images. The blood glucose level was 86 mg/dL at the time of FDG administration. *One or more of the following individualized dose reduction techniques were utilized for this examination: 1. Automated exposure control. 2. Adjustment of the mA and/or kV according to patient size. 3. Use of iterative reconstruction technique. FINDINGS: There is mild increased radiotracer activity within SUV of 3.3 associated with a circumscribed oval mass within the lingula measuring 2.6 cm. There is mild nonspecific radiation activity within SUV of 4.1 associated with a left retroperitoneal lymph node measuring 1.3 cm. No additional lymph node with radiotracer activity above the blood pool is seen. There is radiotracer activity within maximum SUV of 4.5 within the right mandible, likely inflammatory or due to recent dental instrumentation. No suspicious CT correlate is seen in this location. There is expected radiotracer activity within the bowel and renal collecting system. The CT portion of the exam demonstrates a oval circumscribed mass within the lingula measuring approximately 2.6 cm. There is no pneumothorax or pleural effusion. There is bilateral posterior dependent and basilar atelectasis. The heart is normal in size. There are nonspecific mediastinal and hilar lymph nodes. There is pneumobilia and a biliary stent. There is fatty infiltration of the liver along the falciform ligament. There is mild enlargement of the left hepatic lobe. No pancreatic lesion is seen. The spleen and adrenal glands are unremarkable. There is left renal cortical scarring. The bladder is unremarkable. There is a small uterine calcification. The ovaries are unremarkable. There is evidence of partial bowel resection. There is a surgical anastomosis within the right midabdomen. There is no evidence of bowel obstruction. There is colonic diverticulosis. The aorta is normal in caliber. There are right maxillary sinus mucous retention cysts. The visualized portions the brain demonstrate mild cerebral volume loss. There is no mass effect or midline shift. There is no neck lymphadenopathy. There is a slightly heterogeneous thyroid without a discrete nodule. There is a small nodule within the lateral right breast, likely due to an axillary tail lymph node. There are degenerative changes throughout the spine. There is no acute or suspicious osseous lesion. IMPRESSION: 1. Mild radiotracer activity with an SUV of 3.3 associated with a 2.6 cm lingular mass. Correlate with pathology findings corresponding with the biopsy of this lesion performed 12/20/2019. 2. Mild radiotracer activity with an SUV of 4.1 within a prominent left retroperitoneal lymph node. This is nonspecific and may be reactive in etiology. 3. No additional abnormal tracer activity to suggest malignancy. Please refer to the above report for additional findings regarding the non-PET portion of the exam. 2. Electronically signed by: Clare Mathews MD (12/30/2019 2:29 PM) [id number]
== END ==
LOC: PETSC 10:32
PROVIDERS: ATTEND Internal Medicine Pulmonary Disease
DX: C80.1 Malignant (primary) neoplasm, unspecified (principal); R91.8 Other nonspecific abnormal finding of lung field; N63.31 Unspecified lump in axillary tail of the right breast; M47.819 Spondylosis without myelopathy or radiculopathy, site unspecified
CPT/HCPCS: 78815; A9552